=== PATIENT | male | born 1960 | race Caucasian/White ===

== ENCOUNTER → 2017-05-11 | Outpatient (REF) | payer OTHER ==
[~2017-05-11] MED LIST: /ATOR40TA; /QUIN10TA; ACET65TA; ACTO15TA; ANDROGEL; BABY81CH; EFFE150C; HYDR25TA6; PRIL20CA; ZEBE5TAB
[2017-05-11 12:28] LABS: ALBUMIN 4.1 GM/DL (3.2-5.2); ALBUMIN/GLOBULIN RATIO 1.11 (1.00-1.93); ALKALINE PHOSPHATASE 74 U/L (45-117); ALT/SGPT 50 U/L (12-78); AST/SGOT 31 U/L (15-37); BILIRUBIN,DIRECT 0.2 MG/DL (0.0-0.2); BILIRUBIN,TOTAL 0.7 MG/DL (0.2-1.0); CHOLESTEROL LEVEL 316 MG/DL (<200); TOTAL PROTEIN 7.8 GM/DL (6.4-8.2); TRIGLYCERIDES LEVEL 282 MG/DL (<150)
[2017-05-13 09:55] LABS: CARCINOEMBRYONIC ANTIGEN < 0.5 NG/ML (<2.5)
== END ==
LOC: M LABDRAW1 11:26
PROVIDERS: ATTEND Internal Medicine Cardiovascular Disease
DX: E78.5 Hyperlipidemia, unspecified (principal); E11.9 Type 2 diabetes mellitus without complications; K71.6 Toxic liver disease with hepatitis, not elsewhere classified

== ENCOUNTER 2018-01-09 08:24 | Emergency (ER) | payer OTHER ==
[2018-01-09] MEDS: KETOROLAC 60 MG/2 ML VIAL (J1885) IM (10:18)
== END 2018-01-09 10:50 | disposition home or self-care (01) ==
LOC: M ED 08:24
DX: S39.012A Strain of muscle, fascia and tendon of lower back, initial encounter (principal); X50.0XXA Overexertion from strenuous movement or load, initial encounter; Y92.89 Other specified places as the place of occurrence of the external cause; E11.9 Type 2 diabetes mellitus without complications; I10 Essential (primary) hypertension; E78.5 Hyperlipidemia, unspecified; M54.9 Dorsalgia, unspecified; G89.29 Other chronic pain; F32.9 Major depressive disorder, single episode, unspecified; Z79.82 Long term (current) use of aspirin; Z79.899 Other long term (current) drug therapy
CPT/HCPCS: J1885

== ENCOUNTER 2018-01-12 10:25 | Emergency (ER) | payer OTHER | END 2018-01-12 11:37 | disposition home or self-care (01) | LOC: M ED 10:25 | DX: S39.011D Strain of muscle, fascia and tendon of abdomen, subsequent encounter (principal); X58.XXXD Exposure to other specified factors, subsequent encounter; Y92.89 Other specified places as the place of occurrence of the external cause | CPT/HCPCS: 99282 ==

== ENCOUNTER → 2018-06-01 | Outpatient (CLI) | payer OTHER ==
[2018-06-01 08:35] LABS: HEMATOCRIT 46.7 % (42.0-52.0); HEMOGLOBIN 15.5 g/dl (13.5-17.5); MEAN CORPUSCULAR HEMOGLOBIN 30.8 pg (27.0-33.0); MEAN CORPUSCULAR HGB CONC 33.2 g/dl (32.0-36.5); MEAN CORPUSCULAR VOLUME 92.8 fl (80.0-96.0); PLATELET COUNT, AUTOMATED 276 10^3/uL (150-450); RED BLOOD COUNT 5.03 10^6/uL (4.30-6.10); RED CELL DISTRIBUTION WIDTH 12.1 % (11.5-14.5); WHITE BLOOD COUNT 8.3 10^3/uL (4.0-10.0)
[2018-06-01 08:43] LABS: APPEARANCE, URINE CLEAR (CLEAR); BACTERIA, URINE AUTO NEGATIVE (NEGATIVE); BILIRUBIN, URINE AUTO NEGATIVE (NEGATIVE); BLOOD, URINE BLOOD NEGATIVE (NEGATIVE); COLOR, URINE YELLOW (YELLOW); GLUCOSE, URINE (UA) AUTO NEGATIVE (NEGATIVE); KETONE, URINE AUTO NEGATIVE (NEGATIVE); LEUKOCYTE ESTERASE, URINE AUTO NEGATIVE (NEGATIVE); MUCUS, URINE SMALL (NEGATIVE); NITRITE, URINE AUTO NEGATIVE (NEGATIVE); PROTEIN, URINE AUTO NEGATIVE (NEGATIVE); RBC, URINE AUTO 2 /HPF (0-3); SPECIFIC GRAVITY URINE AUTO 1.025 (1.002-1.035); SQUAMOUS EPITHELIAL CELL UR AU 0 /HPF (0-6); WBC, URINE AUTO 3 /HPF (0-3)
[2018-06-01 08:50] LABS: ESTIMATED AVERAGE GLUCOSE 166 MG/DL (60-110); HEMOGLOBIN A1c 7.4 %
[2018-06-01 09:00] LABS: ALBUMIN 4.1 GM/DL (3.2-5.2); ALBUMIN/GLOBULIN RATIO 1.11 (1.00-1.93); ALKALINE PHOSPHATASE 79 U/L (45-117); ALT/SGPT 58 U/L (12-78); ANION GAP 6 MEQ/L (8-16); AST/SGOT 33 U/L (7-37); BILIRUBIN,TOTAL 0.6 MG/DL (0.2-1.0); BLOOD UREA NITROGEN 16 MG/DL (7-18); CARBON DIOXIDE LEVEL 30 MEQ/L (21-32); CHLORIDE LEVEL 107 MEQ/L (98-107); CHOLESTEROL LEVEL 160 MG/DL (<200); CHOLESTEROL RISK RATIO 4.705 (<5); CREATININE FOR GFR 1.15 MG/DL (0.70-1.30); FREE T4 0.95 NG/DL (0.76-1.46); GLOMERULAR FILTRATION RATE > 60.0 (>56); GLUCOSE, FASTING 165 MG/DL (70-100); HDL CHOLESTEROL 34 MG/DL (>40); NON-HDL-C 126 MG/DL; POTASSIUM SERUM 4.1 MEQ/L (3.5-5.1); RHEUMATOID FACTOR QUANT < 10.0 IU/ML (<15.0); SODIUM LEVEL 143 MEQ/L (136-145); TOTAL PROTEIN 7.8 GM/DL (6.4-8.2); TRIGLYCERIDES LEVEL 100 MG/DL (<150)
[2018-06-01 09:03] LABS: VITAMIN B12 LEVEL 369 PG/ML (247-911)
[2018-06-01 09:20] LABS: ERYTHROCYTE SEDIMENTATION RATE 4 mm/hr (0-20)
[2018-06-03 00:06] LABS: ANTINUCLEAR ANTIBODIES DIRECT Negative (Negative)
[2018-06-03 00:06] LABS: CYCLIC CITRULLINATED PEPTIDE 10 units (0-19)
== END ==
LOC: M LAB 07:44
DX: D64.9 Anemia, unspecified (principal)
CPT/HCPCS: 84443

== ENCOUNTER → 2020-04-29 | Outpatient (CLI) | payer OTHER ==
[~2020-04-29] MED LIST changes: -/ATOR40TA; -/QUIN10TA; +ACCU1TAB; +CIAL20TA PO; +CYCL-707 PO; +HYDR-3715 PO; +LIPI1TAB2
== END ==
LOC: M WUC 11:41
PROVIDERS: ATTEND Physician Assistant
DX: N40.0 Benign prostatic hyperplasia without lower urinary tract symptoms (principal)

== ENCOUNTER 2021-08-14 11:11 | Emergency (ER) | payer OTHER ==
[~2021-08-14] VITALS: Ht 172.7 cm; Wt 93.3 kg
--- OUTSIDE RECORDS SUMMARY | 2021-08-14 11:17 | CCD | Continuity of Care Document ---
Author Author Romaine WESTBROOK PA Organization Unknown Address [address] [place] [address] [place] [address] Phone [phone] Care Team Providers Care Manager Culture Name Role Phone Mirza. Cristela Segura AUTM [phone] Problems Description No Information Available Social History Type Date Description Comments Sex Unknown ETOH Use Occasionally consumes alcohol Tobacco Use Start: Unknown End: Unknown Patient is a former smoker Smoking Status Reviewed: 02/10/20 Patient is a former smoker Allergies, Adverse Reactions, Alerts Description No Known Drug Allergies Medications Active Medications SIG Qnty Indications Ordering Provide r Date Prednisone 20mg Tablets take one tablet twice a day x 5 days 10tabs R05 Omid Gao JR. 06/05/2021 Effexor XR 150mg Caps ER 24HR 1 po qd 30caps Unknown Aspirin Ec 325mg Tablets DR Unknown Quinapril HCL 10mg Tablets qd Unknown Lovaza 1gm Capsules Unknown Clonazepam 0.5mg Tablets Unknown Omeprazole Unknown Immunizations Description No Information Available Vital Signs Date Vital Result Comment 06/05/2021 1:14pm BP Systolic 119 mmHg BP Diastolic 80 mmHg Heart Rate 73 /min Respiratory Rate 16 /min O2 % BldC Oximetry 98 % Body Temperature 96.6 F Weight 195.00 lb Height 67 inches 5'7" BMI (Body Mass Index) 30.5 kg/m2 Pain Level 1 02/10/2020 10:41am BP Systolic 121 mmHg BP Diastolic 77 mmHg Heart Rate 81 /min Respiratory Rate 12 /min O2 % BldC Oximetry 97 % Body Temperature 98.0 F Weight 203.00 lb Height 67 inches 5'7" BMI (Body Mass Index) 31.8 kg/m2 Pain Level 2 Results Description No Information Available Procedures Date Code Description Status 06/05/2021 33913 Office/Outpatient Established Lo w MDM 20-29 Min Completed Medical Devices Description No Information Available Encounters Type Date Location Provider Dx Diagnosis Office Visit 06/05/2021 2:15p Main Office HÉCTOR Landaverde R05 Cough T59.4x1A Toxic effect of chlorine gas , accidental, init Assessments Date Code Description Provider 07/05/2021 Z20.828 Contact with and (thornton spected) exposure to other viral communicable diseases HÉCTOR Landaverde 06/05/2021 R05 Cough HÉCTOR King 06/05/2021 T59.4x1A Toxic effect of chlo rine gas, accidental (unintentional), initial encounter HÉCTOR Landaverde Plan of Treatment No Information Available Functional Status Description No Information Available Mental Status Description No Information Available Referrals Description No Information Available
--- OUTSIDE RECORDS SUMMARY | 2021-08-14 11:17 | CCD | Continuity of Care Document ---
Author Author Romaine WESTBROOK PA Organization Unknown Address [address] [place] [address] [place] [address] Phone [phone] Care Team Providers Care Cemetery Worker Name Role Phone Mirza. Cristela Segura AUTM [phone] Problems Description No Information Available Social History [...] Available Procedures Date Code Description Status 06/05/2021 57113 Office/Outpatient Established Helen w MDM 20-29 Min Completed Medical Devices Description No Information Available Encounters Type Date Location Provider Dx Diagnosis Office Visit 06/05/2021 2:15p Main Office HÉCTOR Landaverde R05 Cough T59.4x1A Toxic effect of chlorine gas , accidental, init Assessments Date Code Description Provider 06/05/2021 R05 Cough HÉCTOR King 06/05/2021 T59.4x1A Toxic effect of chlo rine gas, accidental (unintentional), initial encounter HÉCTOR Landaverde Plan of Treatment No Information Available Functional Status Description No Information Available Mental Status Description No Information Available Referrals Description No Information Available
--- OUTSIDE RECORDS SUMMARY | 2021-08-14 11:18 | CCD | Continuity of Care Document ---
Author Author Romaine WESTBROOK PA Organization Unknown Address [address] [place] [address] [place] [address] Phone [phone] Care Team Providers Care Glass Ribbon Machine Operator Name Role Phone Mirza. Cristela Segura AUTM [phone] Problems Description No Information Available Social History [...] Available Procedures Date Code Description Status 06/05/2021 02423 Office/Outpatient Established Lo w MDM 20-29 Min [...] initial encounter HÉCTOR Landaverde Plan of Treatment 06/05/2021 - HÉCTOR Landaverde* R05 Cough* New Medication:* Prednisone 20 mg - take one tablet twice a day x 5 days * T59.4x1A Toxic effect of chlorine gas, accidental (unintentional), initial encounter Functional Status Description No Information Available Mental Status Description No Information Available Referrals Description No Information Available
--- OUTSIDE RECORDS SUMMARY | 2021-08-14 11:18 | CCD | Continuity of Care Document ---
Author Author Romaine FORD P.C[facility] Organization Unknown Address [address] [place] [address] Phone [phone] Care Team Providers Care Box Turner Name Role Phone LON SEGURA M.D. P.C. AUTM [phone] Social History Type Date Description Comments Sex Unknown Medications Active Medications SIG Qnty Indications Ordering Provide r Date Vitamin D3 25mcg Tablet Take Two Tablets By Mouth Daily 180tabs [facility] 000 Levocetirizine Dihydrochloride 5mg Tablets Take Two Tablets By Mouth Every Day Unkno wn Easivent Misc as Directed With Inhaler Unknown Albuterol Sulfate HFA 108(90Base) mcg/Act Aerosol Inhale One To Two Puffs By Mouth Every 4 To 6 Hours as Needed For Shortness Of Breath Unknown Clonazepam 1mg Tablets Take Three Tablets By Mouth Twice A Day Maximum Daily Dose 6 Tablets Unknown Cortisporin-TC 3.3-3 -10-0.5mg/ml Suspension Instill 3 Drops Into Affected Ear S Two Times A Day Unknown Freestyle Lancets Misc Usr To Test Three Times A Day Unknown Freestyle [place] Lite w/Device Ki t Test Three Times A Day Unknown Freestyle Lite Test Strips Test Three Times A Day Unknown Methylprednisolone 4mg TBPK Take as Directed Per Package Instructions Unknown Metformin HCL 500mg Tablets Take One Tablet By Mouth Two Times Per Day With Morning And Evening Meals Unknown Cialis 20mg Tablets Take One Tablet By Mouth as Needed DO Not Take More Than Once Every 48 Hours Luther Unknown Losartan Potassium 100mg Tablets Take One Tablet By Mouth Once Daily 90tabs [facility] Vkmro-3-Yysr Ethyl Esters 1gm Caps ules Take Four Capsules By Mouth Once Daily 360caps Lon villafana [facility] Venlafaxine HCL ER 75mg Caps ER 24 HR Take Three Capsules By Mouth Every Day Unknown Omeprazole 20mg Capsules DR Take One Capsule By Mouth Every Day 90caps [facility] Rosuvastatin Calcium 10mg Tablets Take One Tablet By Mouth Daily 90tabs [facility] 0 Fenofibrate 48mg Tablets Take One Tablet By Mouth Every Day 90tasamuel [facility]ura [facility] 00 Aspirin Ec 325mg Tablets DR Take One Tablet By Mouth Every Day 90ta [facility] Amlodipine Besylate 5mg Tablets Take One Tablet By Mouth AT Bedtime 90tasamuel Segura M.D[facility] .[facility] Vital Signs Date Vital Result Comment 06/10/2021 11:17am Height 68 inches 5'8" Weight 199.38 lb BMI (Body Mass Index) 30.3 kg/m2 Body Temperature 97.7 F BP Systolic 122 mmHg BP Diastolic 70 mmHg Heart Rate 80 /min O2 % BldC Oximetry 98 % 11/03/2020 10:47am Height 68 inches 5'8" Weight 194.00 lb BMI (Body Mass Index) 29.5 kg/m2 Body Temperature 97.2 F BP Systolic 151 mmHg BP Diastolic 86 mmHg Heart Rate 77 /min O2 % BldC Oximetry 90 % Results Test Acquired Date Facility Test Result H/L Range Note CBC W/Automated Diff 06/10/[address] [id number] [phone] CBC W/Automated Diff (SEE NOTE) 1 WBC 12.4 10^3/uL High 4.2 - 11.0 RBC 4.86 10^6/uL 4.50 - 6.30 Hemoglobin 15.1 g/dL 14.0 - 16.0 Hematocrit 44.7 % 41.0 - 51.0 MCV 92.0 fL 80.0 - 94.0 MCH 31.1 pg 27.0 - 34.0 MCHC 33.8 g/dL 31.0 - 36.0 RDW 12.4 % 11.5 - 14.8 Platelets 305 10^3/uL 150 - 450 MPV 9.4 fL 7.4 - 10.4 Neut 50.1 % 37.0 - 80.0 Lymph 39.7 % 25.0 - 40.0 [place] 7.4 % 3.0 - 8.0 Eos 1.3 % 0.0 - 7.0 Baso 0.4 % 0.0 - 2.0 %Ig 1.1 % High 0.0 - 0.0 %NRBC 0.0 % 0.0 - 0.0 #Neut 6.19 10^3/uL 2.00 - 6.90 #Lymph 4.91 10^3/uL High 0.60 - 3.40 #[place] 0.91 10^3/uL High 0.00 - 0.90 #Eos 0.16 10^3/uL 0.00 - 0.70 #Baso 0.05 10^3/uL 0.00 - 0.20 #Ig 0.14 10^3/uL High 0.00 - 0.10 #NRBC 0.00 10^3/uL 0.00 - 0.00 Manual Diff NOT INDICATED RBC Morph NOT INDICATED Laboratory test finding 06/10/2021 [facility] [address] [place] [address] [phone] Hgba1c 6.1 % 4.4 - 6.1 2 Comprehensive Metabolic Panel 06/10/2021 [facility] [address] [place] [address] [phone] Comprehensive Metabo (SEE NOTE) 3 Sodium 145 mEq/L 134 - 153 Potassium 4.0 mEq/L 3.6 - 5.0 Chloride 106 mEq/L 98 - 107 Co2 31 mEq/L High 22 - 30 Glucose 120 mg/dL High 70 - 99 BUN 21 mg/dL 7 - 21 Creatinine 1.2 mg/dL 0.7 - 1.5 BUN/Creat 18 8 - 27 Total Protein 7.0 g/dL 6.3 - 8.2 Albumin 4.6 g/dL 3.9 - 5.0 Globulin 2.4 GM/DL 2.4 - 3.2 A/G Ratio 1.9 0.8 - 2.0 Calcium 10.2 mg/dL 8.4 - 10.2 Total Bili <0.7 mg/dL 0.2 - 1.3 Alkaline Phos 50 U/L 38 - 126 Sgot/Ast 16 U/L 5 - 40 SGPT/Alt 16 U/L 7 - 56 Anion Gap 8.0 mmol/L 8.0 - 16.0 Age 60 yrs Non-Aa GFR >60 mL/min Afr Amer GFR >60 mL/min 4 Cve Panel 06/10/[address] [address] [phone] Cve Panel (SEE NOTE) 5 Cholesterol 119 mg/dL Low 131 - 200 Triglycerides 149 mg/dL 35 - 160 HDL 49 mg/dL 29 - 86 LDL 58 mg/dL Low 65 - 175 Risk Factor 2.4 Low 3.4 - 4.9 LDL/HDL 1.18 1.00 - 3.55 6 Urinalysis 06/10/[address] [address] [phone] Urinalysis (SEE NOTE) 7 Source R Color yellow Normal: Yellow Clarity clear Normal: Clear Spec Ware 1.025 1.001 - 1.030 pH 6 5 - 9 Glucose NORM Normal: Negative Bilirubin NEG Normal: Negative Ketone NEG Normal: Negative Protein NEG Normal: Negative Nitrite NEG Normal: Negative Blood NEG Normal: Negative Leuk Est 25 Normal: Negative Urobilinogen 4 less than 1.0 mg/dL Microscopic See Below WBC 1 - 3 Normal: None Seen Epithelial FEW Normal: None Seen Bacteria Trace Normal: None Seen Laboratory test finding 06/10/[address] [address] [phone] PSA - Diagnostic 2.13 ng/mL 0.00 - 4.00 8 1 COMPLETE BLOOD COUNT 2 {A1] {HB] 3 COMPREHENSIVE METABOLIC PANE L 4 Male GFR Interprentation 20-49 yrs >60 mL/min Normal 50-59 yrs >56 mL/min Normal 60-69 yrs >49 mL/min Normal 70-79yrs >42 mL/min Normal 80 and above >35 mL/min Normal Female GFR Interpretation 20-39 yrs >60 mL/min Normal 40-49 yrs >58 mL/min Normal 50-59 yrs >51 mL/min Normal 60-69 yrs >45 mL/min Normal 70-79 yrs >39 mL/min Normal 80 and above >32 mL/min Normal 5 LIPID PANEL 6 CVE RISK CHOL/HDL LDL/HDL MEN: 1/2 AVERAGE 3.43 1.00 AVERAGE 4.97 3.55 2X AVERAGE 9.55 6.25 3X AVERAGE 23.99 7.99 WOMEN: 1/2 AVERAGE 3.27 1.47 AVERAGE 4.44 3.22 2X AVERAGE 7.05 5.03 3X AVERAGE 11.04 6.14 7 URINALYSIS 8 \\BLDo\\PSA INTERPRETATION\\BLD x\\ The PSA assay should not be used alone for a screening test or diagnosis for presence or absence of malignant disease. Predictions of disease recurrence should not be based solely on values obtained from serial patient serum values. The PSA result was determined by "[employer]", on the [employer] PILY 6000. Values obtained with different assay methods or kits cannot be used interchangeably. Procedures Date Code Description Status 06/10/2021 32961 Office/Outpatient Established Mo d MDM 30-39 Min Completed Encounters Type Date Location Provider Dx Diagnosis Office Visit 06/10/2021 11:30a [facility] I11.9 Hypertensive heart disease without heart failure E78.5 Hyperlipidemia, unspecified E66.9 Obesity, unspecified E11.9 Type 2 diabetes mellitus wit hout complications Assessments Date Code Description Provider 06/10/2021 I11.9 Hypertensive heart disease witho ut heart failure [facility] 06/10/2021 E78.5 Hyperlipidemia, unspecified [place] [facility] 06/10/2021 E66.9 Obesity, unspecified Lon maynard [facility] 06/10/2021 E11.9 Type 2 diabetes mellitus without complications [facility] Plan of Treatment Future Appointment(s):* 12/11/2021 10:30 am - [facility] at [facility]
--- OUTSIDE RECORDS SUMMARY | 2021-08-14 11:18 | CCD | Continuity of Care Document ---
Author Author Romaine WESTBROOK PA Organization Unknown Address [address] [place] [address] [place] [address] Phone [phone] Care Team Providers Care Licensed Journeyman Electrician Name Role Phone Mirza. Cristela Segura AUTM [phone] Problems Description No Information Available Social History [...] Available Procedures Date Code Description Status 06/05/2021 94473 Office/Outpatient Established Lo w MDM 20-29 Min [...]
--- OUTSIDE RECORDS SUMMARY | 2021-08-14 11:18 | CCD | Continuity of Care Document ---
Author Organization Unknown Address Unknown Phone Unavailable Care Team Providers Care Filleter Name Role Phone LON SEGURA M.D. P.C. AUTM [phone] Social History Type Date Description Comments Sex Unknown Medications Active Medications SIG Qnty Indications Ordering Provide r Date Vitamin D3 25mcg Tablet Take Two Tablets By Mouth Daily 180tabs Lon [facility] 000 Levocetirizine Dihydrochloride 5mg Tablets Take Two Tablets By Mouth Every Day Unkno wn Easivent [facility] as Directed With Inhaler Unknown Albuterol Sulfate [...] Two Times A Day Unknown Freestyle Lancets [facility] Usr To Test Three Times A Day Unknown Freestyle [place] Lite w/Device Ki t Test Three Times [...] Daily 90tabs Lon [facility] Vjzen-1-Lgyn Ethyl Esters 1gm Caps ules Take Four [...] Take One Tablet By Mouth Every Day 90tabs [facility] 00 Aspirin Ec 325mg Tablets DR Take One Tablet By Mouth Every Day 90tabs [facility] Amlodipine Besylate 5mg Tablets Take One Tablet By Mouth AT Bedtime 90tabs Lon [facility] Vital Signs Date [...] H/L Range Note CBC W/Automated Diff 06/10/[address] [address] [phone] CBC W/Automated Diff (SEE NOTE) 1 WBC [...] 80.0 Lymph 39.7 % 25.0 - 40.0 [place] 7.4 % 3.0 - 8.0 Eos 1.3 % 0.0 - 7.0 Baso 0.4 % 0.0 - 2.0 %Ig 1.1 % High 0.0 - 0.0 %NRBC 0.0 % 0.0 - 0.0 #Neut 6.19 10^3/uL 2.00 - 6.90 #Lymph 4.91 10^3/uL High 0.60 - 3.40 #[place] 0.91 10^3/uL High 0.00 - 0.90 #Eos 0.16 10^3/uL 0.00 - 0.70 #Baso 0.05 10^3/uL 0.00 - 0.20 #Ig 0.14 10^3/uL High 0.00 - 0.10 #NRBC 0.00 10^3/uL 0.00 - 0.00 Manual Diff NOT INDICATED RBC Morph NOT INDICATED Laboratory test finding 06/10/2021 [facility] [address] [place] [address] [phone] Hgba1c 6.1 % 4.4 - 6.1 2 Comprehensive Metabolic Panel 06/10/2021 [facility] [address] [place] [address] [phone] Comprehensive Metabo (SEE NOTE) 3 Sodium 145 [...] GFR >60 mL/min 4 Cve Panel 06/10/[address] [address] [phone] Cve Panel (SEE NOTE) 5 Cholesterol 119 mg/dL Low 131 - 200 Triglycerides 149 mg/dL 35 - 160 HDL 49 mg/dL 29 - 86 LDL 58 mg/dL Low 65 - 175 Risk Factor 2.4 Low 3.4 - 4.9 LDL/HDL 1.18 1.00 - 3.55 6 Urinalysis 06/10/[address] [address] [phone] Urinalysis (SEE NOTE) 7 Source R Color yellow Normal: Yellow Clarity clear Normal: Clear Spec [place] 1.025 1.001 - 1.030 pH 6 5 [...] Normal: None Seen Laboratory test finding 06/10/[address] [address] [phone] PSA - Diagnostic 2.13 ng/mL 0.00 - [...] result was determined by "[employer]CL[employer]", on the Sandra PILY 6000. Values obtained with different assay methods or kits cannot be used interchangeably. Plan of Treatment Future Appointment(s):* 12/11/2021 10:30 am - [facility] at [facility]
--- OUTSIDE RECORDS SUMMARY | 2021-08-14 11:18 | CCD ---
Author Author [facility] Organization [facility] Address Unknown Phone Unavailable Care Team Providers Care Running Instructor Name Role Phone PIETRO, George ANAYA Unavailable Unavailable LETTIERE, George ANAYA Unavailable Unavailable LETTIERE, George ANAYA Unavailable Unavailable LETTIERE, George ANAYA Unavailable Unavailable LETTIERE, George ANAYA Unavailable Unavailable LETTIERE, George ANAYA Unavailable Unavailable LETTIERE, George ANAYA Unavailable Unavailable LETTIERE, George ANAYA Unavailable Unavailable LETTIERE, George NAAYA Unavailable Unavailable LETTIERE, George ANAYA Unavailable Unavailable LETTIERE, George WOODS PA Unavailable Unavailable LETTIERE, George WOODS PA Unavailable Unavailable LETTIERE, George WOODS PA Unavailable Unavailable LETTIERE, George WOODS PA Unavailable Unavailable LETTIERE, George WOODS PA Unavailable Unavailable LETTIERE, George WOODS PA Unavailable Unavailable LETTIERE, George WOODS PA Unavailable Unavailable LETTIERE, George WOODS PA Unavailable Unavailable LETTIERE, George WOODS PA Unavailable Unavailable LETTIERE, George WOODS PA Unavailable Unavailable LETTIERE, George WOODS PA Unavailable Unavailable LETTIERE, George WOODS PA Unavailable Unavailable LETTIERE, A CHUCK PA Unavailable Unavailable LETTIERE, George WOODS PA Unavailable Unavailable LETTIERE, George WOODS PA Unavailable Unavailable LETTIERE, A CHUCK PA Unavailable Unavailable LETTIERE, A CHUCK PA Unavailable Unavailable LETTIERE, A CHUCK PA Unavailable Unavailable LETTIERE, A CHUCK PA Unavailable Unavailable LETTIERE, A CHUCK PA Unavailable Unavailable LETTIERE, A CHUCK PA Unavailable Unavailable Bartoszewski, Tonya Jannie MS, RPA-C Unavailable Unav ailable Bartoszewski, Tonya Jannie MS, RPA-C Unavailable Unav ailable Bartoszewski, Tonya Jannie MS, RPA-C Unavailable Unav ailable Bartoszewski, Tonya Jannie MS, RPA-C Unavailable Unav ailable Bartoszewski, Tonya Jannie MS, RPA-C Unavailable Unav ailable Bartoszewski, Tonya Jannie MS, RPA-C Unavailable Unav ailable Bartoszewski, Tonya Jannie MS, RPA-C Unavailable Unav ailable Bartoszewski, Tonya Jannie MS, RPA-C Unavailable Unav ailable Bartoszewski, Tonya Jannie MS, RPA-C Unavailable Unav ailable Bartoszewski, Tonya Jannie MS, RPA-C Unavailable Unav ailable Bartoszewski, Tonya Jannie MS, RPA-C Unavailable Unav ailable Bartoszewski, Tonya Jannie MS, RPA-C Unavailable Unav ailable Bartoszewski, Tonya Jannie MS, RPA-C Unavailable Unav ailable Bartoszewski, Tonya Jannie MS, RPA-C Unavailable Unav ailable Bartoszewski, Tonya Jannie MS, RPA-C Unavailable Unav ailable Bartoszewski, Tonya Jannie MS, RPA-C Unavailable Unav ailable Bartoszewski, Tonya Jannie MS, RPA-C Unavailable Unav ailable Bartoszewski, Tonya Jannie MS, RPA-C Unavailable Unav ailable Bartoszewski, Tonya Jannie MS, RPA-C Unavailable Unav ailable Bartoszewski, Tonya Jannie MS, RPA-C Unavailable Unav ailable Bartoszewski, Tonya Jannie MS, RPA-C Unavailable Unav ailable Bartoszewski, Tonya Jannie MS, RPA-C Unavailable Unav ailable Bartoszewski, Tonya Jannie MS, RPA-C Unavailable Unav ailable Bartoszewski, Tonya Jannie MS, RPA-C Unavailable Unav ailable Bartoszewski, Tonya Jannie MS, RPA-C Unavailable Unav ailable Bartoszewski, Tonya Jannie MS, RPA-C Unavailable Unav ailable Bartoszewski, Tonya Jannie MS, RPA-C Unavailable Unav ailable Bartoszewski, Tonya Jannie MS, RPA-C Unavailable Unav ailable Bartoszewski, Tonya Jannie MS, RPA-C Unavailable Unav ailable RUFUS, MAQBOOL SULEMA MD Unavailable Unavailable RUFUS, MAQBOOL SULEMA MD Unavailable Unavailable RUFUS, MAQBOOL SULEMA MD Unavailable Unavailable RUFUS, MAQBOOL SULEMA MD Unavailable Unavailable RUFUS, MAQBOOL SULEMA MD Unavailable Unavailable RUFUS, MAQBOOL SULEMA MD Unavailable Unavailable RUFUS, MAQBOOL SULEMA MD Unavailable Unavailable RUFUS, MAQBOOL SULEMA MD Unavailable Unavailable RUFUS, MAQBOOL SULEMA MD Unavailable Unavailable RUFUS, MAQBOOL SULEMA MD Unavailable Unavailable RUFUS, MAQBOOL SULEMA MD Unavailable Unavailable RUFUS, MAQBOOL SULEMA MD Unavailable Unavailable RUFUS, MAQBOOL SULEMA MD Unavailable Unavailable RUFUS, MAQBOOL SULEMA MD Unavailable Unavailable RUFUS, MAQBOOL SULEMA MD Unavailable Unavailable RUFUS, MAQBOOL SULEMA MD Unavailable Unavailable RUFUS, MAQBOOL SULEMA MD Unavailable Unavailable RUFUS, MAQBOOL SULEMA MD Unavailable Unavailable RUFUS, MAQBOOL SULEMA MD Unavailable Unavailable RUFUS, MAQBOOL SULEMA MD Unavailable Unavailable RUFUS, MAQBOOL SULEMA MD Unavailable Unavailable RUFUS, MAQBOOL SULEMA MD Unavailable Unavailable RUFUS, MAQBOOL SULEMA MD Unavailable Unavailable RUFUS, MAQBOOL SULEMA MD Unavailable Unavailable RUFUS, MAQBOOL SULEMA MD Unavailable Unavailable RUFUS, MAQBOOL SULEMA MD Unavailable Unavailable RUFUS, MAQBOOL SULEMA MD Unavailable Unavailable RUFUS, MAQBOOL SULEMA MD Unavailable Unavailable RUFUS, MAQBOOL SULEMA MD Unavailable Unavailable RUFUS, MAQBOOL SULEMA MD Unavailable Unavailable RUFUS, MAQBOOL SULEMA MD Unavailable Unavailable RUFUS, MAQBOOL SULEMA MD Unavailable Unavailable RUFUS, MAQBOOL SULEMA MD Unavailable Unavailable RUFUS, MAQBOOL SULEMA MD Unavailable Unavailable RUFUS, MAQBOOL SULEMA MD Unavailable Unavailable RUFUS, MAQBOOL SULEMA MD Unavailable Unavailable RUFUS, MAQBOOL SULEMA MD Unavailable Unavailable RUFUS, MAQBOOL SULEMA MD Unavailable Unavailable RUFUS, MAQBOOL SULEMA MD Unavailable Unavailable RUFUS, MAQBOOL SULEMA MD Unavailable Unavailable RUFUS, MAQBOOL SULEMA MD Unavailable Unavailable RUFUS, MAQBOOL SULEMA MD Unavailable Unavailable RUFUS, MAQBOOL SULEMA MD Unavailable Unavailable RUFUS, MAQBOOL SULEMA MD Unavailable Unavailable RUFUS, MAQBOOL SULEMA MD Unavailable Unavailable RUFUS, MAQBOOL SULEMA MD Unavailable Unavailable RUFUS, MAQBOOL SULEMA MD Unavailable Unavailable RUFUS, MAQBOOL SULEMA MD Unavailable Unavailable RUFUS, MAQBOOL SULEMA MD Unavailable Unavailable RUFUS, MAQBOOL SULEMA MD Unavailable Unavailable RUFUS, MAQBOOL SULEMA MD Unavailable Unavailable RUFUS, MAQBOOL SULEMA MD Unavailable Unavailable RUFUS, MAQBOOL SULEMA MD Unavailable Unavailable RUFUS, MAQBOOL SULEMA MD Unavailable Unavailable RUFUS, MAQBOOL SULEMA MD Unavailable Unavailable RUFUS, MAQBOOL SULEMA MD Unavailable Unavailable RUFUS, MAQBOOL SULEMA MD Unavailable Unavailable RUFUS, MAQBOOL SULEMA MD Unavailable Unavailable RUFUS, MAQBOOL SULEMA MD Unavailable Unavailable RUFUS, MAQBOOL SULEMA MD Unavailable Unavailable RUFUS, MAQBOOL SULEMA MD Unavailable Unavailable RUFUS, MAQBOOL SULEMA MD Unavailable Unavailable RUFUS, MAQBOOL SULEMA MD Unavailable Unavailable RUFUS, MAQBOOL SULEMA MD Unavailable Unavailable RUFUS, MAQBOOL SULEMA MD Unavailable Unavailable RUFUS, MAQBOOL SULEMA MD Unavailable Unavailable RUFUS, MAQBOOL SULEMA MD Unavailable Unavailable RUFUS, MAQBOOL SULEMA MD Unavailable Unavailable RUFUS, MAQBOOL SULEMA MD Unavailable Unavailable RUFUS, MAQBOOL SULEMA MD Unavailable Unavailable RUFUS, MAQBOOL SULEMA MD Unavailable Unavailable RUFUS, MAQBOOL SULEMA MD Unavailable Unavailable RUFUS, MAQBOOL SULEMA MD Unavailable Unavailable RUFUS, MAQBOOL SULEMA MD Unavailable Unavailable RUFUS, MAQBOOL SULEMA MD Unavailable Unavailable RUFUS, MAQBOOL SULEMA MD Unavailable Unavailable RUFUS, MAQBOOL SULEMA MD Unavailable Unavailable RUFUS, MAQBOOL SULEMA MD Unavailable Unavailable OBEN, T SINDY MD Unavailable Unavailable OBEN, T SINDY MD Unavailable Unavailable OBEN, T SINDY MD Unavailable Unavailable OBEN, T SINDY MD Unavailable Unavailable OBEN, T SINDY MD Unavailable Unavailable OBEN, T SINDY MD Unavailable Unavailable OBEN, T SINDY MD Unavailable Unavailable OBEN, T SINDY MD Unavailable Unavailable OBEN, T SINDY MD Unavailable Unavailable OBEN, T SINDY MD Unavailable Unavailable OBEN, T SINDY MD Unavailable Unavailable OBEN, T SINDY MD Unavailable Unavailable OBEN, T SINDY MD Unavailable Unavailable OBEN, T SINDY MD Unavailable Unavailable OBEN, T SINDY MD Unavailable Unavailable OBEN, T SINDY MD Unavailable Unavailable OBEN, T SINDY MD Unavailable Unavailable OBEN, T SINDY MD Unavailable Unavailable OBEN, T SINDY MD Unavailable Unavailable OBEN, T SINDY MD Unavailable Unavailable OBEN, T SINDY MD Unavailable Unavailable OBEN, T SINDY MD Unavailable Unavailable OBEN, T SINDY MD Unavailable Unavailable OBEN, T SINDY MD Unavailable Unavailable OBEN, T SINDY MD Unavailable Unavailable OBEN, T SINDY MD Unavailable Unavailable OBEN, T SINDY MD Unavailable Unavailable OBEN, T SINDY MD Unavailable Unavailable OBEN, T SINDY MD Unavailable Unavailable OBEN, T SINDY MD Unavailable Unavailable OBEN, T SINDY MD Unavailable Unavailable OBEN, T SINDY MD Unavailable Unavailable OBEN, T SINDY MD Unavailable Unavailable OBEN, T SINDY MD Unavailable Unavailable OBEN, T SINDY MD Unavailable Unavailable OBEN, T SINDY MD Unavailable Unavailable OBEN, T SINDY MD Unavailable Unavailable OBEN, T SINDY MD Unavailable Unavailable OBEN, T SINDY MD Unavailable Unavailable OBEN, T SINDY MD Unavailable Unavailable OBEN, T SINDY MD Unavailable Unavailable OBEN, T SINDY MD Unavailable Unavailable OBEN, T SINDY MD Unavailable Unavailable OBEN, T SINDY MD Unavailable Unavailable OBEN, T SINDY MD Unavailable Unavailable OBEN, T SINDY MD Unavailable Unavailable OBEN, T SINDY MD Unavailable Unavailable OBEN, T SINDY MD Unavailable Unavailable OBEN, T SINDY MD Unavailable Unavailable OBEN, T SINDY MD Unavailable Unavailable OBEN, T SINDY MD Unavailable Unavailable OBEN, T SINDY MD Unavailable Unavailable OBEN, T SINDY MD Unavailable Unavailable OBEN, T SINDY MD Unavailable Unavailable OBEN, T SINDY MD Unavailable Unavailable OBEN, T SINDY MD Unavailable Unavailable OBEN, T SNIDY MD Unavailable Unavailable RUFUS, MAQBOOL SULEMA MD Unavailable Unavailable RUFUS, MAQBOOL SULEMA MD Unavailable Unavailable RUFUS, MAQBOOL SULEMA MD Unavailable Unavailable RUFUS, MAQBOOL SULEMA MD Unavailable Unavailable RUFUS, MAQBOOL SULEMA MD Unavailable Unavailable RUFUS, MAQBOOL SULEMA MD Unavailable Unavailable RUFUS, MAQBOOL SULEMA MD Unavailable Unavailable RUFUS, MAQBOOL SULEMA MD Unavailable Unavailable RUFUS, MAQBOOL SULEMA MD Unavailable Unavailable RUFUS, MAQBOOL SULEMA MD Unavailable Unavailable RUFUS, MAQBOOL SULEMA MD Unavailable Unavailable RUFUS, MAQBOOL SULEMA MD Unavailable Unavailable RUFUS, MAQBOOL SULEMA MD Unavailable Unavailable RUFUS, MAQBOOL SULEMA MD Unavailable Unavailable RUFUS, MAQBOOL SULEMA MD Unavailable Unavailable RUFUS, MAQBOOL SULEMA MD Unavailable Unavailable RUFUS, MAQBOOL SULEMA MD Unavailable Unavailable RUFUS, MAQBOOL SULEMA MD Unavailable Unavailable RUFUS, MAQBOOL SULEMA MD Unavailable Unavailable RUFUS, MAQBOOL SULEMA MD Unavailable Unavailable RUFUS, MAQBOOL SULEMA MD Unavailable Unavailable RUFUS, MAQBOOL SULEMA MD Unavailable Unavailable RUFUS, MAQBOOL SULEMA MD Unavailable Unavailable RUFUS, MAQBOOL SULEMA MD Unavailable Unavailable RUFUS, MAQBOOL SULEMA MD Unavailable Unavailable RUFUS, MAQBOOL SULEMA MD Unavailable Unavailable RUFUS, MAQBOOL SULEMA MD Unavailable Unavailable RUFUS, MAQBOOL SULEMA MD Unavailable Unavailable RUFUS, MAQBOOL SULEMA MD Unavailable Unavailable RUFUS, MAQBOOL SULEMA MD Unavailable Unavailable RUFUS, MAQBOOL SULEMA MD Unavailable Unavailable RUFUS, MAQBOOL SULEMA MD Unavailable Unavailable RUFUS, MAQBOOL SULEMA MD Unavailable Unavailable RUFUS, MAQBOOL SULEMA MD Unavailable Unavailable RUFUS, MAQBOOL SULEMA MD Unavailable Unavailable RUFUS, MAQBOOL SULEMA MD Unavailable Unavailable RUFUS, MAQBOOL SULEMA MD Unavailable Unavailable RUFUS, MAQBOOL SULEMA MD Unavailable Unavailable RUFUS, MAQBOOL SULEMA MD Unavailable Unavailable RUFUS, MAQBOOL SULEMA MD Unavailable Unavailable RUFUS, MAQBOOL SULEMA MD Unavailable Unavailable RUFUS, MAQBOOL SULEMA MD Unavailable Unavailable RUFUS, MAQBOOL SULEMA MD Unavailable Unavailable RUFUS, MAQBOOL SULEMA MD Unavailable Unavailable RUFUS, MAQBOOL SULEMA MD Unavailable Unavailable RUFUS, MAQBOOL SULEMA MD Unavailable Unavailable RUFUS, MAQBOOL SULEMA MD Unavailable Unavailable RUFUS, MAQBOOL SULEMA MD Unavailable Unavailable RUFUS, MAQBOOL SULEMA MD Unavailable Unavailable RUFUS, MAQBOOL SULEMA MD Unavailable Unavailable RUFUS, MAQBOOL SULEMA MD Unavailable Unavailable RUFUS, MAQBOOL SULEMA MD Unavailable Unavailable RUFUS, MAQBOOL SULEMA MD Unavailable Unavailable RUFUS, MAQBOOL SULEMA MD Unavailable Unavailable RUFUS, MAQBOOL SULEMA MD Unavailable Unavailable RUFUS, MAQBOOL SULEMA MD Unavailable Unavailable RUFUS, MAQBOOL SULEMA MD Unavailable Unavailable RUFUS, MAQBOOL SULEMA MD Unavailable Unavailable RUFUS, MAQBOOL SULEMA MD Unavailable Unavailable RUFUS, MAQBOOL SULEMA MD Unavailable Unavailable RUFUS, MAQBOOL SULEMA MD Unavailable Unavailable RUFUS, MAQBOOL SULEMA MD Unavailable Unavailable RUFUS, MAQBOOL SULEMA MD Unavailable Unavailable RUFUS, MAQBOOL SULEMA MD Unavailable Unavailable RUFUS, MAQBOOL SULEMA MD Unavailable Unavailable RUFUS, MAQBOOL SULEMA MD Unavailable Unavailable RUFUS, MAQBOOL SULEMA MD Unavailable Unavailable RUFUS, MAQBOOL SULEMA MD Unavailable Unavailable RUFUS, MAQBOOL SULEMA MD Unavailable Unavailable RUFUS, MAQBOOL SULEMA MD Unavailable Unavailable RUFUS, MAQBOOL SULEMA MD Unavailable Unavailable RUFUS, MAQBOOL SULEMA MD Unavailable Unavailable RUFUS, MAQBOOL SULEMA MD Unavailable Unavailable RUFUS, MAQBOOL SULEMA MD Unavailable Unavailable RUFUS, MAQBOOL SULEMA MD Unavailable Unavailable RUFUS, MAQBOOL SULEMA MD Unavailable Unavailable RUFUS, MAQBOOL SULEMA MD Unavailable Unavailable RUFUS, MAQBOOL SULEMA MD Unavailable Unavailable Re-disclosure Warning The records that you are about to access may contain information from federally-assisted alcohol or drug abuse programs. If such information is present, then the following federally mandated warning applies: This information has been disclosed to you from records protected by federal confidentiality rules (42 CFR part 2). The federal rules prohibit you from making any further disclosure of this information unless further disclosure is expressly permitted by the written consent of the person to whom it pertains or as otherwise permitted by 42 CFR part 2. A general authorization for the release of medical or other information is NOT sufficient for this purpose. The Federal rules restrict any use of the information to criminally investigate or prosecute any alcohol or drug abuse patient.The records that you are about to access may contain highly sensitive health information, the redisclosure of which is protected by Article 27-F of the [facility] Public Health law. If you continue you may have access to information: Regarding HIV / AIDS; Provided by facilities licensed or operated by the [facility] Office of Mental Health; or Provided by the [facility] Office for People With Developmental Disabilities. If such information is present, then the following [facility] mandated warning applies: This information has been disclosed to you from confidential records which are protected by state law. State law prohibits you from making any further disclosure of this information without the specific written consent of the person to whom it pertains, or as otherwise permitted by law. Any unauthorized further disclosure in violation of state law may result in a fine or intermediate sentence or both. A general authorization for the release of medical or other information is NOT sufficient authorization for further disc losure. Allergies and Adverse Reactions Type Description Substance Reaction Status Data Source(s ) No Known Drug Allergies No Known Drug Allergies [facility] Family History Family Member Name Family Member Gender Family Member Status Date o f Status Description Data Source(s) Unknown Male Problem [facility] ([facility]) () Unknown Male Problem [facility] ([facility]) Unknown Unknown Problem [facility] ([facility], ) Unknown Unknown Problem [facility] ([facility]) Encounters Encounter Providers Location Date Indications Data Source(s ) Outpatient Attender: SULEMA SEGURA MDConsultant: SULEMA Cardoso MD 06/10/2021 11:45:00 AM EDT - 06/10/2021 12:45:[address] [facility] Outpatient Attender: Jannie Alexis MS, RPA-CConsultan t: SULEMA SEGURA MD 06/10/2021 11:43:00 AM EDT - 06/10/2021 12:43:[address] [facility] Outpatient Attender: SULEMA SEGURA MD Medical Building 06/10 11:30:00 AM EDT [facility] (Sulema Segura MD) Outpatient Attender: CHUCK martinez 06/05/2021 02:15:00 PM EDT [facility] ([facility]) Outpatient Attender: SINDY EVANS MDConsultant: SULEMA SEGURA MD 05/13/2021 09:04:00 AM EDT - 05/13/2021 09:04:[address] [facility] Outpatient Attender: SULEMA SEGURA MD Medical Building 11/03 09:00:00 AM EST [facility] (Sulema Segura MD) Outpatient Attender: SULEMA SEGURA MD Medical Building 07/31 02:45:00 PM EDT [facility] (Sulema Segura MD) Immunizations Vaccine Date Status Description Data Source(s) COVID-19 VACCINE Pfizer 01/16/2021 12:00:00 AM EDT completed [facility] Vaccine Series Complete: YESThis Data wa s Submitted to [facility] [address] COVID-19 VACCINE Pfizer 12/26/2020 12:00:00 AM EST completed [facility] Vaccine Series Complete: NOThis Data was Submitted to [facility] [address] Medications Medication Brand Name Start Date Product Form Dose Route Admi nistrative Instructions Pharmacy Instructions Status Indications Reaction Description Data Source(s) 20 mg 06/05/2021 12:00:00 AM EDT tablet 10 TAKE ONE TABLET BY MOUTH TWICE A DAY FOR 5 DAYS TAKE ONE TABLET BY MOUTH TWICE A DAY FOR 5 DAYS SOLD: 2020 [facility] Prednisone 20 MG Oral Tablet Prednisone 06/05/2021 12:00:00 AM EDT active [facility] ([facility]) 2 % 07/31/2020 12:00:00 AM EDT ointment 44 APPLY A SMALL AMOUNT TO AFFECTED AREA(S) TOPICALLY THREE TIMES A DAY APPLY A SMALL AMOUNT TO AFFECTED AREA(S) TOPICALLY THREE TIMES A DAY SOLD: 08/01/2020 [facility] 875-125 mg 07/31/2020 12:00:00 AM EDT tablet 20 TAKE ONE TABLET BY MOUTH EVERY 12 HOURS TAKE ONE TABLET BY MOUTH EVERY 12 HOURS SOLD: 08/01/2020 [facility] 75 mg 05/28/2020 12:00:00 AM EDT capsule,extended releas e 24hr 15 TAKE THREE CAPSULES BY MOUTH EVERY DAY TAKE THREE CAPSULES BY MOUTH EVERY DAY SOLD: 08/30/2020 [facility] Insurance Providers Payer name Policy type / Coverage type Policy ID Covered libertarian ID Covered libertarian's relationship to pineda Policy Pineda Plan Information [employer] [id number] [facility] [id number] [employer] Self () Workers Compensation [id number] Self J [id number] [employer] Self () Workers Compensation [id number] Self J [id number] [employer] Self () Workers Compensation [id number] Self J [id number] [facility] Self () Workers Compensation [id number] Self J [id number] [facility] Self () Workers Compensation [id number] Self J [id number] [facility] Self () Workers Compensation [id number] Self J [id number] [facility] Self () Workers Compensation [id number] Self J [id number] [employer] () Workers Compensation [id number] Self W [id number] [employer] (WC) Workers Compensation [id number] Self W [id number] [employer] Workers Compensation [id number] Self [id number] [employer] () Workers Compensation [id number] Self W [id number] [employer] (WC) Workers Compensation [id number] Self W [id number] [employer] (WC) Workers Compensation [id number] Self W [id number] [employer] (WC) Workers Compensation [id number] Self W [id number] [employer] (WC) Workers Compensation [id number] Self W [id number] [employer] (WC) Workers Compensation [id number] Self W [id number] [employer] (WC) Workers Compensation [id number] Self W [id number] [employer] (HMO) [id number] Se lf [facility] SELF INSURED CLM#[id number] SP CLM#[id number] [employer] [id number] Self [employer] [id number] 18 [id number] [facility] SELF INS P [id number] S [id number] [employer] PPO P [id number] S [id number] [facility] SELF INSURED [id number] SP [id number] OTHER WORKERS COMPENSATION [id number] SP [id number] UMR [facility] [id number] SP [id number] [employer] -O/P [id number] 18 [id number] [employer] [id number] 18 [id number] [employer] [id number] Self [id number] [employer] (pr) Medigap Part B [id number] 6226.0 Self [id number] [employer] (pr) Commercial [id number] Self [id number] [employer] [id number] S elf [id number] [employer] (pr) Medigap Part B [id number] 6226.0 Self [id number] [employer] (pr) Medigap Part B [id number] 6226.0 Self [id number] [employer] [id number] S elf [id number] [employer] (pr) Medigap Part B [id number] 6226.0 Self [id number] [employer] O [id number] S [id number] [employer] (pr) Medigap Part B [id number] 6226.0 Self [id number] [employer] (pr) Medigap Part B [id number] 6226.0 Self [id number] [employer] (pr) Medigap Part B [id number] 6226.0 Self [id number] [facility] SELF INSURED [id number] [employer]-O/P [id number] 18 [id number] [employer] [id number] Self [id number] [employer] [id number] 18 [id number] Problems, Conditions, and Diagnoses Code Display Name Description Problem Type Effective Dates Data Source(s) N390 Urinary tract infection, site not specif ied Urinary tract infection, site not specified Diagnosis 06/10/2021 11:45:[address] [facility] D649 Anemia, unspecified Anemia, unspecified Diagnosis 0 06/10/2021 11:45:[address] [facility] E785 Hyperlipidemia, unspecified Hyperlipidemia, unspecifie d Diagnosis 06/10/2021 11:45:[address] [facility] E119 Type 2 diabetes mellitus without complic ations Type 2 diabetes mellitus without complications Diagnosis 06/10/2021 11:45:00 AM EDT [facility] Z125 Encounter for screening for malignant ne oplasm of prostate Encounter for screening for malignant neoplasm of prostate Diagnosis 11:43:[address] [facility] Surgeries/Procedures Procedure Description Date Indications Data Source(s) OFFICE OUTPATIENT VISIT 25 MINUTES 06/10/2021 12:00:00 AM EDT [facility] (Sulema Segura MD) OFFICE OUTPATIENT VISIT 15 MINUTES 06/05/2021 12:00:00 AM EDT [facility] ([facility]) Results ID Date Data Source [id number] 07/05/2021 12:00:00 AM EDT [facility] Name Value Range Interpretation Code Description Data Génesis rce(s) Supporting Document(s) SARS-CoV2 Rapid Antigen Negative [facility] This lab was reported by [facility]. ID Date Data Source [id number] 06/10/2021 11:52:00 AM EDT [facility] (Sulema Segura MD) Name Value Range Interpretation Code Description Data Génesis rce(s) Supporting Document(s) Laboratory test finding (navigational concept) Laboratory test result [facility] (Sulema Segura MD) URINALYSIS Laboratory test finding (navigational concept) Laboratory test result [facility] (Sulema Segura MD) Laboratory test finding (navigational concept) Laboratory test result [facility] (Sulema Segura MD) Laboratory test finding (navigational concept) Laboratory test result [facility] (Sulema Segura MD) Laboratory test finding (navigational concept) 1.025 1.001-1.030 [facility] (Sulema Segura MD) Laboratory test finding (navigational concept) 6 5-9 [facility] (Sulema Segura MD) Laboratory test finding (navigational concept) Laboratory test result [facility] (Sulema Segura MD) Laboratory test finding (navigational concept) Laboratory test result [facility] (Sulema Segura MD) Laboratory test finding (navigational concept) Laboratory test result [facility] (Sulema Segura MD) Laboratory test finding (navigational concept) Laboratory test result [facility] (Sulema Segura MD) Laboratory test finding (navigational concept) Laboratory test result [facility] (Sulema Segura MD) Laboratory test finding (navigational concept) Laboratory test result [facility] (Sulema Segura MD) Laboratory test finding (navigational concept) 25 [facility] (Sulema Segura MD) Laboratory test finding (navigational concept) 4 [facility] (Sulema Segura MD) Laboratory test finding (navigational concept) Laboratory test result [facility] (Sulema Segura MD) Laboratory test finding (navigational concept) Laboratory test result [facility] (Sulema Segura MD) Laboratory test finding (navigational concept) Laboratory test result [facility] (Sulema Segura MD) Laboratory test finding (navigational concept) Laboratory test result [facility] (Sulema Segura MD) ID Date Data Source [id number] 06/10/2021 11:52:00 AM EDT [facility] (Sulema Segura MD) Name Value Range Interpretation Code Description Data Génesis rce(s) Supporting Document(s) Laboratory test finding (navigational concept) Laboratory test result [facility] (Sulema Segura MD) LIPID PANEL Laboratory test finding (navigational concept) 119 mg/dL 1 31-200 Below low normal [facility] (Sulema Segura MD) Laboratory test finding (navigational concept) 149 mg/dL 35-160 [facility] (Sulema Segura MD) Laboratory test finding (navigational concept) 58 mg/dL 65-175 Below low normal [facility] (Sulema Segura MD) Laboratory test finding (navigational concept) 49 mg/dL 29-86 [facility] (Sulema Segura MD) Laboratory test finding (navigational concept) 2.4 3.4-4.9 Below low normal [facility] (Sulema Segura MD) Laboratory test finding (navigational concept) 1.18 1.00-3.55 [facility] (Sulema Segura MD) CVE RISK CHOL/HDL LDL/HDL MEN: 1/2 AVERAGE 3.43 1.00 AVERAGE 4.97 3.55 2X AVERAGE 9.55 6.25 3X AVERAGE 23.99 7.99 WOMEN: 1/2 AVERAGE 3.27 1.47 AVERAGE 4.44 3.22 2X AVERAGE 7.05 5.03 3X AVERAGE 11.04 6.14 ID Date Data Source [id number] 06/10/2021 11:52:00 AM EDT [facility] (Sulema Segura MD) Name Value Range Interpretation Code Description Data Génesis rce(s) Supporting Document(s) Laboratory test finding (navigational concept) Laboratory test result [facility] (Sulema Segura MD) COMPREHENSIVE METABOLIC PANEL Laboratory test finding (navigational concept) 145 meq/L 134-153 [facility] (Sulema Segura MD) Laboratory test finding (navigational concept) 4.0 meq/L 3.6-5.0 [facility] (Sulema Segura MD) Laboratory test finding (navigational concept) 31 meq/L 22-30 Above high normal [facility] (Sulema Segura MD) Laboratory test finding (navigational concept) 106 meq/L 98-107 [facility] (Sulema Segura MD) Laboratory test finding (navigational concept) 21 mg/dL 7-21 [facility] (Sulema Segura MD) Laboratory test finding (navigational concept) 120 mg/dL 7 0-99 Above high normal [facility] (Sulema Segura MD) Laboratory test finding (navigational concept) 18 8-27 [facility] (Sulema Segura MD) Laboratory test finding (navigational concept) 1.2 mg/dL 0.7-1.5 [facility] (Sulema Segura MD) Laboratory test finding (navigational concept) 4.6 g/dL 3.9-5.0 [facility] (Sulema Segura MD) Laboratory test finding (navigational concept) 7.0 g/dL 6.3-8.2 [facility] (Sulema Segura MD) Laboratory test finding (navigational concept) 1.9 0.8-2.0 [facility] (Sulema Segura MD) Laboratory test finding (navigational concept) 2.4 GM/DL 2.4-3.2 [facility] (Sulema Segura MD) Laboratory test finding (navigational concept) 10.2 mg/dL 8.4-10.2 [facility] (Sulema Segura MD) Laboratory test finding (navigational concept) 50 U/L 38-126 [facility] (Sulema Segura MD) Laboratory test finding (navigational concept) Laboratory test resu lt 0.2-1.3 [facility] (Sulema Segura MD) Laboratory test finding (navigational concept) 16 U/L 5-40 [facility] (Sulema Segura MD) Laboratory test finding (navigational concept) 8.0 mmol/L 8.0-16.0 [facility] (Sulema Segura MD) Laboratory test finding (navigational concept) 16 U/L 7-56 [facility] (Sulema Segura MD) Laboratory test finding (navigational concept) 60 yrs [facility] (Sulema Segura MD) Laboratory test finding (navigational concept) Laboratory test result [facility] (Sulema Segura MD) Laboratory test finding (navigational concept) Laboratory test result [facility] (Sulema Segura MD) Male GFR Interprentation 20-49 yrs >60 mL/min Normal 50-59 yrs >56 mL/min Normal 60-69 yrs >49 mL/min Normal 70-79yrs >42 mL/min Normal 80 and above >35 mL/min Normal Female GFR Interpretation 20-39 yrs >60 mL/min Normal 40-49 yrs >58 mL/min Normal 50-59 yrs >51 mL/min Normal 60-69 yrs >45 mL/min Normal 70-79 yrs >39 mL/min Normal 80 and above >32 mL/min Normal ID Date Data Source [id number] 06/10/2021 11:52:00 AM EDT [facility] (Sulema Segura MD) Name Value Range Interpretation Code Description Data Génesis rce(s) Supporting Document(s) Hemoglobin A1c/Hemoglobin.total in Blood 6.1 % 4.4-6.1 [facility] (Sulema Segura MD) {A1] {HB] ID Date Data Source [id number] 06/10/2021 11:52:00 AM EDT [facility] (Sulema Segura MD) Name Value Range Interpretation Code Description Data Génesis rce(s) Supporting Document(s) Laboratory test finding (navigational concept) Laboratory test result [facility] (Sulema Segura MD) COMPLETE BLOOD COUNT Laboratory test finding (navigational concept) 12.4 10^3/uL 4 .2-11.0 Above high normal [facility] (Sulema Segura MD) Laboratory test finding (navigational concept) 4.86 10^6/uL 4.50-6.30 [facility] (Sulema Segura MD) Laboratory test finding (navigational concept) 15.1 g/dL 14.0-16.0 [facility] (Sulema Segura MD) Laboratory test finding (navigational concept) 31.1 pg 27.0-34.0 [facility] (Sulema Segura MD) Laboratory test finding (navigational concept) 92.0 fL 80.0-94.0 [facility] (Sulema Segura MD) Laboratory test finding (navigational concept) 44.7 % 41.0-51.0 [facility] (Sulema Segura MD) Laboratory test finding (navigational concept) 12.4 % 11.5-14.8 [facility] (Sulema Segura MD) Laboratory test finding (navigational concept) 33.8 g/dL 31.0-36.0 [facility] (Sulema Segura MD) Laboratory test finding (navigational concept) 305 10^3/uL 150-450 [facility] (Sulema Segura MD) Laboratory test finding (navigational concept) 9.4 fL 7.4-10.4 [facility] (Sulema Segura MD) Laboratory test finding (navigational concept) 50.1 % 37.0-80.0 [facility] (Sulema Segura MD) Laboratory test finding (navigational concept) 7.4 % 3.0-8.0 [facility] (Sulema Segura MD) Laboratory test finding (navigational concept) 39.7 % 25.0-40.0 [facility] (Sulema Segura MD) Laboratory test finding (navigational concept) 1.3 % 0.0-7.0 [facility] (Sulema Segura MD) Laboratory test finding (navigational concept) 0.4 % 0.0-2.0 [facility] (Sulema Segura MD) Laboratory test finding (navigational concept) 1.1 % 0.0-0.0 Above high normal [facility] (Sulema Segura MD) Laboratory test finding (navigational concept) 6.19 10^3/uL 2.00-6.90 [facility] (Sulema Segura MD) Laboratory test finding (navigational concept) 0.0 % 0.0-0.0 [facility] (Sulema Segura MD) Laboratory test finding (navigational concept) 0.91 10^3/uL 0 .00-0.90 Above high normal [facility] (Sulema Segura MD) Laboratory test finding (navigational concept) 4.91 10^3/uL 0 .60-3.40 Above high normal [facility] (Sulema Segura MD) Laboratory test finding (navigational concept) 0.05 10^3/uL 0.00-0.20 [facility] (Sulema Segura MD) Laboratory test finding (navigational concept) 0.14 10^3/uL 0 .00-0.10 Above high normal [facility] (Sulema Segura MD) Laboratory test finding (navigational concept) 0.16 10^3/uL 0.00-0.70 [facility] (Sulema Segura MD) Laboratory test finding (navigational concept) 0.00 10^3/uL 0.00-0.00 [facility] (Sulema Segura MD) Laboratory test finding (navigational concept) Laboratory test result [facility] (Sulema Segura MD) Laboratory test finding (navigational concept) Laboratory test result [facility] (Sulema Segura MD) ID Date Data Source [id number] 06/10/2021 01:13:00 PM EDT [facility] Name Value Range Interpretation Code Description Data Génesis rce(s) Supporting Document(s) UR[facility]ALYSIS [facility] URINALYS[facility] SOURCE R [facility] COLOR yellow NORMAL: Yellow [facility] CLARITY clear NORMAL: Clear [facility] Specific gravity of Urine by Test strip 1.025 1.001 - 1.030 [facility] pH 6 5 - 9 [facility] al Glucose [Mass/volume] in Urine by Test strip NORM NORMAL: Negat [facility] Bilirubin.total [Presence] in Urine by Test strip NEG NORMAL: Negative [facility] Ketones [Presence] in Urine by Test strip NEG NORMAL: Negative [facility] Protein [Mass/volume] in Urine by Test strip NEG NORMAL: Negat [facility] Nitrite [Presence] in Urine by Test strip NEG NORMAL: Negative [facility] BLOOD NEG NORMAL: Negative [facility] LEUK EST 25 NORMAL: Negative [facility] Urobilinogen [Mass/volume] in Urine by Test strip 4 less vicente n 1.0 mg/dL [facility] MICROSCOPIC See Below [facility] ital WBC 1 - 3 NORMAL: NONE SEEN [facility] EPITHELIAL FEW NORMAL: NONE SEEN [facility] Bacteria [Presence] in Urine sediment by Light microscopy Tr michelle NORMAL: NONE SEEN [facility] ID Date Data Source [id number] 06/10/2021 12:57:[address] [facility] Name Value Range Interpretation Code Description Data Génesis rce(s) Supporting Document(s) CVE PANEL [facility] al LIPID PANEL Cholesterol [Mass/volume] in Serum or Plasma 119 MG/DL 131 - [address] [facility] Deprecated Triglyceride [Mass/volume] in Serum or Plasma 149 MG/DL 3 5 - 160 [facility] HDL 49 MG/DL 29 - 86 [facility] al Cholesterol in LDL [Mass/volume] in Serum or Plasma by Direc t assay 58 mg/dL 65 - [address] [facility] Cholesterol.total/Cholesterol in HDL [Mass Ratio] in Serum o r Plasma 2.4 3.4 - 4.[address] [facility] LDL/HDL 1.18 1.00 - 3.55 [facility] ital CVE RISK CHOL/HDL LDL/HDLMEN: 1/2 AVERAGE 3.43 1.00 AVERAGE 4.97 3.55 2X AVERAGE 9.55 6.25 3X AVERAGE 23.99 7.99WOMEN: 1/2 AVERAGE 3.27 1.47 AVERAGE 4.44 3.22 2X AVERAGE 7.05 5.03 3X AVERAGE 11.04 6.14 ID Date Data Source [id number] 06/10/2021 12:57:[address] [facility] Name Value Range Interpretation Code Description Data Génesis rce(s) Supporting Document(s) COMPREHENSIVE METABOLIC PANEL [facility] COMPREHENSIVE METABOLIC PANEL Sodium [Moles/volume] in Serum or Plasma 145 mEq/L 134 - 153 [facility] Potassium [Moles/volume] in Serum or Plasma 4.0 mEq/L 3.6 - 5.0 [facility] Chloride [Moles/volume] in Serum or Plasma 106 mEq/L 98 - 107 [facility] Carbon dioxide, total [Moles/volume] in Serum or Plasma 31 MEQ/L 22 - [address] [facility] Glucose [Mass/volume] in Serum or Plasma 120 MG/DL 70 - [address] [facility] BUN 21 MG/DL 7 - 21 [facility] al Creatinine [Mass/volume] in Serum or Plasma 1.2 MG/DL 0.7 - 1.5 [facility] BUN/CREAT 18 8 - 27 [facility] al Protein [Mass/volume] in Serum or Plasma 7.0 G/DL 6.3 - 8.2 [facility] Albumin [Mass/volume] in Serum or Plasma 4.6 G/DL 3.9 - 5.0 [facility] Globulin [Mass/volume] in Serum by calculation 2.4 GM/DL 2.4 - 3.2 [facility] A/G RATIO 1.9 0.8 - 2.0 Health system Calcium [Mass/volume] in Serum or Plasma 10.2 MG/DL 8.4 - 10.2 [facility] Bilirubin.total [Mass/volume] in Serum or Plasma <0.7 MG/DL 0.2 - 1.3 [facility] Alkaline phosphatase [Enzymatic activity/volume] in Serum or Plasma 50 U/L 38 - 126 [facility] Aspartate aminotransferase [Enzymatic activity/volume] in Serum or Plasma 16 U/L 5 - 40 [facility] Alanine aminotransferase [Enzymatic activity/volume] in Seru m or Plasma 16 U/L 7 - 56 [facility] Anion gap 3 in Serum or Plasma 8.0 mmol/L 8.0 - 16.0 [facility] AGE 60 yrs [facility] NON-AA GFR >60 mL/min [facility] ital AFR AMER GFR >60 mL/min [facility] Male GFR In terprentation 20-49 yrs >60 mL/min Normal 50-59 yrs >56 mL/min Normal 60-69 yrs >49 mL/min Normal 70-79yrs >42 mL/min Normal 80 and above >35 mL/min Normal Female GFR Interpretation 20-39 yrs >60 mL/min Normal 40-49 yrs >58 mL/min Normal 50-59 yrs >51 mL/min Normal 60-69 yrs >45 mL/min Normal 70-79 yrs >39 mL/min Normal 80 and above >32 mL/min Normal ID Date Data Source [id number] 06/10/2021 12:43:[address] [facility] Name Value Range Interpretation Code Description Data Génesis rce(s) Supporting Document(s) Hemoglobin A1c/Hemoglobin.total in Blood 6.1 % 4.4 - 6.1 [facility] {A1]{HB] ID Date Data Source [id number] 06/10/2021 12:04:[address] [facility] Name Value Range Interpretation Code Description Data Génesis rce(s) Supporting Document(s) CBC W/AUTOMATED DIFF [facility] COMPLETE BLOOD COUNT Leukocytes [#/volume] in Blood by Automated count 12.4 10^3/uL 4.2 - 11.[address] [facility] Erythrocytes [#/volume] in Blood by Automated count 4.86 10^6/uL 4. 50 - 6.30 [facility] Hemoglobin [Mass/volume] in Blood 15.1 g/dL 14.0 - 16.0 [facility] Hematocrit [Volume Fraction] of Blood by Automated count 44.7 % 4 1.0 - 51.0 [facility] Erythrocyte mean corpuscular volume [Entitic volume] by Auto mated count 92.0 fL 80.0 - 94.0 [facility] Erythrocyte mean corpuscular hemoglobin [Entitic mass] by Automated count 31.1 pg 27.0 - 34.0 [facility] Erythrocyte mean corpuscular hemoglobin concentration [Mass/volume] by Automated count 33.8 g/dL 31.0 - 36.0 [facility] Erythrocyte distribution width [Ratio] by Automated count 12.4 % 11.5 - 14.8 [facility] Platelets [#/volume] in Blood by Automated count 305 10^3/uL 150 - [address] [facility] Platelet mean volume [Entitic volume] in Blood by Automated count 9.4 fL 7.4 - 10.4 [facility] Neutrophils/100 leukocytes in Blood by Automated count 50.1 % 37. 0 - 80.0 [facility] Lymphocytes/100 leukocytes in Blood by Manual count 39.7 % 25.0 - 40.0 [facility] Monocytes/100 leukocytes in Blood by Automated count 7.4 % 3.0 - 8.0 [facility] Eosinophils/100 leukocytes in Blood by Automated count 1.3 % 0.0 - 7.0 [facility] Basophils/100 leukocytes in Blood by Automated count 0.4 % 0.0 - 2.0 [facility] %IG 1.1 % 0.0 - 0.0 H [facility] %NRBC 0.0 % 0.0 - 0.0 [facility] al Neutrophils [#/volume] in Blood by Automated count 6.19 10^3/uL 2.00 - 6.90 [facility] Lymphocytes [#/volume] in Blood by Automated count 4.91 10^3/uL 0.60 - 3.[address] [facility] Monocytes [#/volume] in Blood by Automated count 0.91 10^3/uL 0.00 - 0.[address] [facility] Eosinophils [#/volume] in Blood by Automated count 0.16 10^3/uL 0.00 - 0.70 [facility] Basophils [#/volume] in Blood by Automated count 0.05 10^3/uL 0.00 - 0.20 [facility] #IG 0.14 10^3/uL 0.00 - 0.10 H [facility] #NRBC 0.00 10^3/uL 0.00 - 0.00 [facility] MANUAL DIFF NOT INDICATED [facility] Hospital RBC MORPH NOT INDICATED [facility] ID Date Data Source [id number] 06/10/2021 11:51:00 AM EDT [facility] (Sulema Segura MD) Name Value Range Interpretation Code Description Data [facility] Supporting Document(s) Prostate specific Ag [Mass/volume] in Serum or Plasma 2.13 ng/mL 0.00 -4.00 [facility] (Sulema Segura MD) \\BLDo\\PSA INTERPRETATION\\BLDx\\ The PSA assay should not be used alone for a screening test or diagnosis for presence or absence of malignant disease. Predictions of disease recurrence should not be based solely on values obtained from serial patient serum values. The PSA result was determined by "[employer]", on the [employer] P[employer] [id number]. Values obtained with different assay methods or kits cannot be used interchangeably. ID Date Data Source [id number] 06/10/2021 12:58:[address] [facility] Name Value Range Interpretation Code Description Data Génesis e(s) Supporting Document(s) Prostate specific Ag [Mass/volume] in Serum or Plasma 2.13 ng/mL 0.00 - 4.00 [facility] \\BLDo\\PSA INTERPRETA TION\\BLDx\\ The PSA assay should not be used alone for a screening test or diagnosis for presence or absence of malignant disease. Predictions of disease recurrence should not be based solely on values obtained from serial patient serum values. The PSA result was determined by "[employer]", on the [id number]. Values obtained with different assay methods or kits cannot be used interchangeably. ID Date Data Source [id number] 05/13/2021 11:08:00 AM EDT [facility] ([facility]) Name Value Range Interpretation Code Description Data [facility](s) Supporting Document(s) Color of Urine Laboratory test result [facility] ([facility]) Appearance of Urine Laboratory test result [facility] ([facility]) Spec [place] 1.030 1.001-1.030 [facility] ([facility]) pH of Urine by Test strip 5 5-9 [facility] ([facility]) Leukocytes Laboratory test result [facility] ([facility]) Nitrate [Presence] in Urine Laboratory test result [facility] ([facility]) Protein [Presence] in Urine by Test strip Laboratory test [facility]) Ketones [Presence] in Urine by Test strip Laboratory test result [facility] ([facility]) Inhouse Glucose Laboratory test result Above high normal [facility] ([facility]) Bilirubin.total [Presence] in Urine by Test strip Laboratory test res ult [facility]) Urobilinogen Laboratory test result [facility]) Blood type and Indirect antibody screen panel - Blood Laboratory test result [facility] ([facility]) Procedure Social History No Information Vital Signs ID Date Data Source UNK Name Value Range Interpretation Code Description Data Source(s) Body height 68 [in_i] 68 [in_i] [facility] (Sulema Segura MD) 5'8" Body weight 199.38 [lb_av] 199.38 [lb_av] [facility] (Sulema Segura MD) Body mass index (BMI) [Ratio] 30.3 kg/m2 30.3 k g/m2 [facility] (Sulema Segura MD) Body temperature 97.7 [degF] 97.7 [degF] [facility] (Sulema Segura MD) Systolic blood pressure 122 mm[Hg] 122 mm[Hg] [facility] (Sulema Segura MD) Diastolic blood pressure 70 mm[Hg] 70 mm[Hg] [facility] (Sulema Segura MD) Heart rate 80 /min 80 /min [facility] (Sulema Segura MD) Oxygen saturation in Arterial blood by Pulse oximetry 98 % 98 % [facility] (Sulema Segura MD) Systolic blood pressure 119 mm[Hg] 119 mm[Hg] [facility] ([facility], [facility]) Diastolic blood pressure 80 mm[Hg] 80 mm[Hg] [facility] ([facility], [facility]) Heart rate 73 /min 73 /min [facility] ([facility], [facility]) Respiratory rate 16 /min 16 /min [facility] ( [facility], [facility]) Oxygen saturation in Arterial blood by Pulse oximetry 98 % 98 % [facility] ([facility]) Body temperature 96.6 [degF] 96.6 [degF] [facility] ([facility], [facility]) Body weight 195.00 [lb_av] 195.00 [lb_av] [facility] ([facility]) Body height 67 [in_i] 67 [in_i] [facility] ([facility]) 5'7" Body mass index (BMI) [Ratio] 30.5 kg/m2 30.5 k g/m2 [facility] ([facility]) Heart rate 65 /min 65 /min [facility] ([facility]) Respiratory rate 20 /min 20 /min [facility] ( [facility]) Oxygen saturation in Arterial blood by Pulse oximetry 97 % 97 % [facility] ([facility]) Body weight 202.38 [lb_av] 202.38 [lb_av] [facility] ([facility]) Body weight 91.797 kg 91.797 kg [facility] ([facility]) Oxygen saturation in Arterial blood by Pulse oximetry 90 % 90 % [facility] (Sulema Segura MD) Body height 68 [in_i] 68 [in_i] [facility] (Sulema Segura MD) 5'8" Systolic blood pressure 151 mm[Hg] 151 mm[Hg] [facility] (Sulema Segura MD) Diastolic blood pressure 86 mm[Hg] 86 mm[Hg] [facility] (Sulema Segura MD) Heart rate 77 /min 77 /min [facility] (Sulema Segura MD) Body temperature 97.2 [degF] 97.2 [degF] [facility] (Sulema Segura MD) Body weight 194.00 [lb_av] 194.00 [lb_av] [facility] (Sulema Segura MD) Body mass index (BMI) [Ratio] 29.5 kg/m2 29.5 k g/m2 [facility] (Sulema Segura MD)
[2021-08-14 11:21] VITALS: BP 154/87
--- OUTSIDE RECORDS SUMMARY | 2021-08-14 14:01 | CCD ---
Author Author [facility] Organization [facility] Address Unknown Phone Unavailable Care Team Providers Care Business Instructor Name Role Phone PIETRO, George ANAYA [...] Unavailable OBEN, T SINDY MD Unavailable Unavailable RUFUS, MAQBOOL SULEMA MD [...] is protected by Article 27-F of the [facility] Public Health law. If you continue you may have access to information: Regarding HIV / AIDS; Provided by facilities licensed or operated by the [facility] Office of Mental Health; or Provided by the [facility] Office for People With Developmental Disabilities. If such information is present, then the following [facility] mandated warning applies: This information has been [...] law may result in a fine or halfway sentence or both. A general authorization for the release of medical or other information is NOT sufficient authorization for further disc losure. Allergies and Adverse Reactions Type Description Substance Reaction Status Data Source(s ) No Known Drug Allergies No Known Drug Allergies [facility] Family History Family Member Name Family Member Gender Family Member Status Date o f Status Description Data Source(s) Unknown Male Problem [facility] ([facility]) () Unknown Male Problem [facility] ([facility]) Unknown Unknown Problem [facility] ([facility]) Unknown Unknown Problem [facility] ([facility]) Encounters Encounter Providers Location Date Indications Data Source(s ) Outpatient Attender: SULEMA SEGURA MDConsultant: SULEMA Cardoso MD 06/10/2021 11:45:00 AM EDT - 06/10/2021 12:45:00 PM EDT [facility] Outpatient Attender: Jannie Alexis MS, RPA-CConsultan t: SULEMA SEGURA MD 06/10/2021 11:43:00 AM EDT - 06/10/2021 12:43:00 PM EDT [facility] Outpatient Attender: SULEMA SEGURA MD Medical Building 06/10 11:30:00 AM EDT [facility] (Sulema Segura MD) Outpatient Attender: CHUCK martinez 06/05/2021 02:15:00 PM EDT [facility] ([facility] Outpatient Attender: SINDY EVANS MDConsultant: SULEMA SEGURA MD 05/13/2021 09:04:00 AM EDT - 05/13/2021 09:04:00 AM EDT [facility] Outpatient Attender: SULEMA SEGURA MD Medical Building 11/03 09:00:00 AM EST [facility] (Sulema Segura MD) Outpatient Attender: SULEMA SEGURA MD Medical Building 07/31 02:45:00 PM EDT [facility] (Sulema Segura MD) Immunizations Vaccine Date Status Description Data Source(s) COVID-19 VACCINE Pfizer 01/16/2021 12:00:00 AM EDT completed [facility] Vaccine Series Complete: YESThis Data wa s Submitted to [facility] [employer]. COVID-19 VACCINE Pfizer 12/26/2020 12:00:00 AM EST completed [facility] Vaccine Series Complete: NOThis Data was Submitted to [facility] [employer]. Medications Medication Brand Name Start Date Product Form Dose Route Admi nistrative Instructions Pharmacy Instructions Status Indications Reaction Description Data Source(s) 20 mg 06/05/2021 12:00:00 AM EDT tablet 10 TAKE ONE TABLET BY MOUTH TWICE A DAY FOR 5 DAYS TAKE ONE TABLET BY MOUTH TWICE A DAY FOR 5 DAYS SOLD: 2020 [facility] [employer] [facility] Prednisone 20 MG Oral Tablet Prednisone 06/05/2021 12:00:00 AM EDT active [facility] ([facility]) 2 % 07/31/2020 12:00:00 AM EDT [...] CAPSULES BY MOUTH EVERY DAY SOLD: 08/30/2020 [employer] [facility] Insurance Providers Payer name Policy type / Coverage type Policy ID Covered constitution party ID Covered constitution party's relationship to pineda Policy Pineda Plan Information [employer] [id number] [facility] [id number] [employer] Self () Workers Compensation [id number] Self J [id number] [employer] Self () Workers Compensation [id number] Self J [id number] [employer] Self () Workers Compensation [id number] Self J [id number] [facility] Self (WC) Workers Compensation [id number] Self J [id number] [facility] Self (WC) Workers Compensation [id number] Self J [id number] [facility] Self (WC) Workers Compensation [id number] Self J [id number] [facility] Self () Workers Compensation [id number] Self J [id number] [employer] (WC) Workers Compensation [id number] Self W [id number] [employer] (WC) Workers Compensation [id number] [id number] Self W [id number] [employer] Workers Compensation [id number] Self [id number] [employer] (WC) Workers Compensation [id number] Self W [id number] [employer] (WC) Workers Compensation [id number] Self W [id number] [employer] (WC) Workers Compensation [id number] [id number] Self W [id number] [employer] (WC) Workers Compensation [id number] Self W [id number] [employer] (WC) Workers Compensation [id number] [id number] Self W [id number] [employer] (WC) Workers Compensation [id number] [id number] Self W [id number] [employer] (WC) Workers Compensation [id number] Self W [id number] [employer] (HMO) [id number] Se lf [facility] SELF INSURED CLM#[id number] SP CLM#[id number] [employer] [id number] Self [employer] [id number] 18 [id number] [facility] SELF INS P [id number] S [id number] [employer] PPO P [id number] S [id number] [facility] SELF INSURED [id number] SP [id number] OTHER WORKERS COMPENSATION [id number] SP [id number] UMR [facility] [id number] SP [id number] UMR -O/P [id number] 18 [id number] UMR [place] [id number] 18 [id number] [employer] [id number] Self [id number] [employer] (pr) Medigap Part B [id number] [id number] 6226.0 Self [id number] [employer] (pr) Commercial [id number] [id number] Self [id number] [employer] [id number] [id number] S elf [id number] [employer] (pr) Medigap Part B [id number] [id number] 6226.0 Self [id number] [employer] (pr) Medigap Part B [id number] 2.16.8[id number] 6226.0 Self [id number] r Commercial [id number] [id number] S elf [id number] [employer] (pr) Medigap Part B [id number] [id number] 6226.0 Self [id number] [employer] O [id number] S [id number] [employer] (pr) Medigap Part B [id number] [id number] 6226.0 Self [id number] [employer] (pr) Medigap Part B [id number] [id number] 6226.0 Self [id number] [employer] (pr) Medigap Part B [id number] [id number] 6226.0 Self [id number] [facility] SELF INSURED [id number] [employer]/P [id number] 18 [id number] [employer] [id number] Self [id number] [employer] [place] [id number] 18 [id number] Problems, Conditions, and Diagnoses Code Display Name Description Problem Type Effective Dates Data Source(s) N390 Urinary tract infection, site not specif ied Urinary tract infection, site not specified Diagnosis 06/10/2021 11:45:00 AM EDT [facility] D649 Anemia, unspecified Anemia, unspecified Diagnosis 0 06/10/2021 11:45:00 AM EDT [facility] E785 Hyperlipidemia, unspecified Hyperlipidemia, unspecifie d Diagnosis 06/10/2021 11:45:00 AM EDT [facility] E119 Type 2 diabetes mellitus without complic ations Type 2 diabetes mellitus without complications Diagnosis 06/10/2021 11:45:00 AM EDT [facility] Z125 Encounter for screening for malignant ne oplasm of prostate Encounter for screening for malignant neoplasm of prostate Diagnosis 11:43:00 AM EDT [facility] Surgeries/Procedures Procedure Description Date Indications Data Source(s) OFFICE OUTPATIENT VISIT 25 MINUTES 06/10/2021 12:00:00 AM EDT [facility]JASEN (Sulema Segura MD) OFFICE OUTPATIENT VISIT 15 MINUTES 06/05/2021 12:00:00 AM EDT [facility] ([facility]) Results ID Date Data Source [id number] 07/05/2021 12:00:00 AM EDT [facility] Name Value Range Interpretation Code Description Data Génesis rce(s) Supporting Document(s) SARS-CoV2 Rapid Antigen Negative [facility] This lab was reported by [facility]. ID Date Data Source [id number] 06/10/2021 11:52:00 AM EDT [facility] (Sulema Segura MD) Name Value Range Interpretation Code Description Data Génessi rce(s) Supporting Document(s) Laboratory test finding (navigational [...] (navigational concept) Laboratory test result [facility] (Sulema Seugra MD) Laboratory test finding (navigational concept) Laboratory test result [facility] (Sulema Segura MD) ID Date Data Source [id number] 06/10/2021 11:52:00 AM EDT [facility] (Sulema Segura [...] AVERAGE 11.04 6.14 ID Date Data Source [id number] 06/10/2021 11:52:00 AM EDT [facility] (Sulema Segura [...] >32 mL/min Normal ID Date Data Source [id number] 06/10/2021 11:52:00 AM EDT MEDJASEN (Sulema Segura MD) Name Value Range Interpretation Code Description Data Génesis rce(s) Supporting Document(s) Hemoglobin A1c/Hemoglobin.total in Blood 6.1 % 4.4-6.1 [facility] (Sulema Segura MD) {A1] {HB] ID Date Data Source [id number] 06/10/2021 11:52:00 AM EDT [facility] (Sulema Segura [...] (Sulema Segura MD) ID Date Data Source [id number] 06/10/2021 01:13:00 PM EDT [facility] Name Value Range Interpretation Code Description Data Génesis rce(s) Supporting Document(s) UR[facility]ALYSIS [facility] URINALYSIS SOURCE R [facility] COLOR yellow NORMAL: Yellow [facility] CLARITY clear NORMAL: Clear [facility] Specific gravity of Urine by Test strip 1.025 1.001 - 1.030 [facility] pH 6 5 - 9 [facility] Glucose [Mass/volume] in Urine by Test strip NORM NORMAL: Negat [facility] Bilirubin.total [Presence] in Urine by Test strip NEG NORMAL: Negative [facility] Ketones [Presence] in Urine by Test strip NEG NORMAL: Negative [facility] Protein [Mass/volume] in Urine by Test strip NEG NORMAL: Negat [facility] Nitrite [Presence] in Urine by Test strip NEG NORMAL: Negative [facility] BLOOD NEG NORMAL: Negative [facility] LEUK EST 25 NORMAL: Negative [facility] Urobilinogen [Mass/volume] in Urine by Test strip 4 less vicente n 1.0 mg/dL [facility] MICROSCOPIC See Below [facility] ital WBC 1 - 3 NORMAL: NONE SEEN [facility] EPITHELIAL FEW NORMAL: NONE SEEN [facility] Bacteria [Presence] in Urine sediment by Light microscopy Tr michelle NORMAL: NONE SEEN [facility] ID Date Data Source [id number] 06/10/2021 12:57:00 PM EDT [facility] Name Value Range Interpretation Code Description Data Génesis rce(s) Supporting Document(s) CVE PANEL [facility] LIPID PANEL Cholesterol [Mass/volume] in Serum or Plasma 119 MG/DL 131 - 200 L [facility] Deprecated Triglyceride [Mass/volume] in Serum or Plasma 149 MG/DL 3 5 - 160 [facility] HDL 49 MG/DL 29 - 86 [facility] Cholesterol in LDL [Mass/volume] in Serum or Plasma by Direc t assay 58 mg/dL 65 - 175 L [facility] Cholesterol.total/Cholesterol in HDL [Mass Ratio] in Serum o r Plasma 2.4 3.4 - 4.9 L [facility] LDL/HDL 1.18 1.00 - 3.55 [facility] ital CVE RISK CHOL/HDL LDL/HDLMEN: 1/2 AVERAGE 3.43 1.00 AVERAGE 4.97 3.55 2X AVERAGE 9.55 6.25 3X AVERAGE 23.99 7.99WOMEN: 1/2 AVERAGE 3.27 1.47 AVERAGE 4.44 3.22 2X AVERAGE 7.05 5.03 3X AVERAGE 11.04 6.14 ID Date Data Source [id number] 06/10/2021 12:57:00 PM EDT [facility] Name Value Range Interpretation Code Description Data Génesis rce(s) Supporting Document(s) COMPREHENSIVE METABOLIC PANEL [facility] COMPREHENSIVE METABOLIC PANEL Sodium [Moles/volume] in Serum or Plasma 145 mEq/L 134 - 153 [facility] Potassium [Moles/volume] in Serum or Plasma 4.0 mEq/L 3.6 - 5.0 [facility] Chloride [Moles/volume] in Serum or Plasma 106 mEq/L 98 - 107 [facility] Carbon dioxide, total [Moles/volume] in Serum or Plasma 31 MEQ/L 22 - 30 H [facility] Glucose [Mass/volume] in Serum or Plasma 120 MG/DL 70 - 99 H [facility] BUN 21 MG/DL 7 - 21 [facility] Creatinine [Mass/volume] in Serum or Plasma 1.2 MG/DL 0.7 - 1.5 [facility] BUN/CREAT 18 8 - 27 [facility] Protein [Mass/volume] in Serum or Plasma 7.0 G/DL 6.3 - 8.2 [facility] Albumin [Mass/volume] in Serum or Plasma 4.6 G/DL 3.9 - 5.0 [facility] Globulin [Mass/volume] in Serum by calculation 2.4 GM/DL 2.4 - 3.2 [facility] A/G RATIO 1.9 0.8 - 2.0 [facility] Calcium [Mass/volume] in Serum or Plasma 10.2 MG/DL 8.4 - 10.2 [facility] Bilirubin.total [Mass/volume] in Serum or Plasma <0.7 MG/DL 0.2 - 1.3 [facility] Alkaline phosphatase [Enzymatic activity/volume] in Serum or Plasma 50 U/L 38 - 126 [facility] Aspartate aminotransferase [Enzymatic activity/volume] in Serum or Plasma 16 U/L 5 - 40 [facility] Alanine aminotransferase [Enzymatic activity/volume] in Seru m or Plasma 16 U/L 7 - 56 [facility] Anion gap 3 in Serum or Plasma 8.0 mmol/L 8.0 - 16.0 [facility] AGE 60 yrs [facility] NON-AA GFR >60 mL/min [facility] AFR AMER GFR >60 mL/min [facility] Male GFR In terprentation 20-49 [...] >32 mL/min Normal ID Date Data Source [id number] 06/10/2021 12:43:00 PM EDT [facility] Name Value Range Interpretation Code Description Data Génesis rce(s) Supporting Document(s) Hemoglobin A1c/Hemoglobin.total in Blood 6.1 % 4.4 - 6.1 [facility] {A1]{HB] ID Date Data Source [id number] 06/10/2021 12:04:00 PM EDT [facility] Name Value Range Interpretation Code Description Data Génesis rce(s) Supporting Document(s) CBC W/AUTOMATED DIFF [facility] COMPLETE BLOOD COUNT Leukocytes [#/volume] in Blood by Automated count 12.4 10^3/uL 4.2 - 11.0 H [facility] Erythrocytes [#/volume] in Blood by Automated count 4.86 10^6/uL 4. 50 - 6.30 [facility] Hemoglobin [Mass/volume] in Blood 15.1 g/dL 14.0 - 16.0 [facility] Hematocrit [Volume Fraction] of Blood by Automated count 44.7 % 4 1.0 - 51.0 [facility] Erythrocyte mean corpuscular volume [Entitic volume] by Auto mated count 92.0 fL 80.0 - 94.0 [facility] Erythrocyte mean corpuscular hemoglobin [Entitic mass] by Automated count 31.1 pg 27.0 - 34.0 [facility] Erythrocyte mean corpuscular hemoglobin concentration [Mass/volume] by Automated count 33.8 g/dL 31.0 - 36.0 [facility] Erythrocyte distribution width [Ratio] by Automated count 12.4 % 11.5 - 14.8 [facility] Platelets [#/volume] in Blood by Automated count 305 10^3/uL 150 - 45 0 [facility] Platelet mean volume [Entitic volume] in Blood by Automated count 9.4 fL 7.4 - 10.4 [facility] Neutrophils/100 leukocytes in Blood by Automated count 50.1 % 37. 0 - 80.0 [facility] Lymphocytes/100 leukocytes in Blood by Manual count 39.7 % 25.0 - 40.0 [facility] Monocytes/100 leukocytes in Blood by Automated count 7.4 % 3.0 - 8.0 [facility] Eosinophils/100 leukocytes in Blood by Automated count 1.3 % 0.0 - 7.0 [facility] Basophils/100 leukocytes in Blood by Automated count 0.4 % 0.0 - 2.0 [facility] %IG 1.1 % 0.0 - 0.0 H [facility] %NRBC 0.0 % 0.0 - 0.0 [facility] Neutrophils [#/volume] in Blood by Automated count 6.19 10^3/uL 2.00 - 6.90 [facility] Lymphocytes [#/volume] in Blood by Automated count 4.91 10^3/uL 0.60 - 3.40 H [facility] Monocytes [#/volume] in Blood by Automated count 0.91 10^3/uL 0.00 - 0.90 H [facility] Eosinophils [#/volume] in Blood by Automated count 0.16 10^3/uL 0.00 - 0.70 [facility] Basophils [#/volume] in Blood by Automated count 0.05 10^3/uL 0.00 - 0.20 [facility] #IG 0.14 10^3/uL 0.00 - 0.10 H [facility] #NRBC 0.00 10^3/uL 0.00 - 0.00 [facility] MANUAL DIFF NOT INDICATED [facility] RBC MORPH NOT INDICATED [facility] spital ID Date Data Source [id number] 06/10/2021 11:51:00 AM EDT [facility] (Sulema Segura MD) Name Value Range Interpretation Code Description Data Génesis rce(s) Supporting Document(s) Prostate specific Ag [Mass/volume] in [...] be used interchangeably. ID Date Data Source [id number] 06/10/2021 12:58:00 PM EDT [facility] Name Value Range Interpretation Code Description Data Génesis rce(s) Supporting Document(s) Prostate specific Ag [Mass/volume] in Serum or Plasma 2.13 ng/mL 0.00 - 4.00 [facility] \\BLDo\\PSA INTERPRETA TION\\BLDx\\ The PSA assay should [...] be used interchangeably. ID Date Data Source [id number] 05/13/2021 11:08:00 AM EDT [facility] ([facility]) Name Value Range Interpretation Code Description Data Génesis rce(s) Supporting Document(s) Color of Urine Laboratory test result [facility] ([facility]) Appearance of Urine Laboratory test result [facility] ([facility]) Spec [place] 1.030 1.001-1.030 [facility] ([facility]) pH of Urine by Test strip 5 5-9 MEDE NT ([facility]) Leukocytes Laboratory test result [facility] ([facility]) Nitrate [Presence] in Urine Laboratory test result [facility] ([facility]) Protein [Presence] in Urine by Test strip [facility] Ketones [Presence] in Urine by Test strip Laboratory test result [facility] ([facility]) Inhouse Glucose Laboratory test result Above high normal [facility] ([facility]) Bilirubin.total [Presence] in Urine by Test strip Laboratory test res ult [facility]) Urobilinogen Laboratory test result [facility] ([facility]) Blood type and Indirect antibody screen panel - Blood Laboratory test result [facility] ([facility]) Procedure Social History No Information Vital Signs ID Date Data Source UNK Name Value Range Interpretation Code Description Data Source(s) Body height 68 [in_i] 68 [in_i] [facility] 5'8" Body weight 199.38 [lb_av] 199.38 [lb_av] [facility] T (Sulema Segura MD) Body mass index (BMI) [Ratio] 30.3 kg/m2 30.3 k g/m2 [facility] (Sule[facility]) Body temperature 97.7 [degF] 97.7 [degF] [facility] (Sule[facility] Segura [facility]) Systolic blood pressure 122 mm[Hg] 122 mm[Hg] [facility] (Sulema Segura MD) Diastolic blood pressure 70 mm[Hg] 70 mm[Hg] [facility] (S[facility]) Heart rate 80 /min 80 /min [facility] (Sulema Segura MD) Oxygen saturation in Arterial blood by Pulse oximetry 98 % 98 % [facility] (Sulema Segura MD) Systolic blood pressure 119 mm[Hg] 119 mm[Hg] [facility]) Diastolic blood pressure 80 mm[Hg] 80 mm[Hg] [facility] ([facility]) Heart rate 73 /min 73 /min [facility] ([facility]) Respiratory rate 16 /min 16 /min [facility] ( [facility], [facility]) Oxygen saturation in Arterial blood by Pulse oximetry 98 % 98 % [facility] ([facility], [facility]) Body temperature 96.6 [degF] 96.6 [degF] [facility] ([facility], [facility]) Body weight 195.00 [lb_av] 195.00 [lb_av] MEDEN T ([facility], [facility]) Body height 67 [in_i] 67 [in_i] [facility] ([facility]) 5'7" Body mass index (BMI) [Ratio] 30.5 kg/m2 30.5 k g/m2 [facility] ([facility]) Heart rate 65 /min 65 /min [facility] ([facility]) Respiratory rate 20 /min 20 /min [facility] ( [facility]) Oxygen saturation in Arterial blood by Pulse oximetry 97 % 97 % [facility] ([facility]) Body weight 202.38 [lb_av] 202.38 [lb_av] MEDEN T ([facility]) Body weight 91.797 kg 91.797 kg [facility] ([facility]) Body height 68 [in_i] 68 [in_i] [facility] (Sulema Segura MD) 5'8" Oxygen saturation in Arterial blood by Pulse oximetry 90 % 90 % [facility] (Sulema Segura MD) Systolic blood pressure 151 mm[Hg] 151 mm[Hg] [facility] (Sulema Segura MD) Diastolic blood pressure [...]
[2021-08-14] MEDS: GI COCKTAIL 50ML BTL(HYOSCYAMINE/MAALOX/LIDOCAINE VISCOUS)(1:3:1) PO ONE (15:24)
[2021-08-14] MEDS: PANTOPRAZOLE 40MG VIAL (C9113 PER 1) IV ONE (15:24)
[2021-08-14] MEDS: SUCRALFATE 1 GM TAB PO ONE (15:24)
[2021-08-14] MEDS: NS 1,000 ML IV ONE (15:25)
[2021-08-14 15:32] LABS: BASO # 0.1 10^3/uL (0.0-0.2); BASO % 0.5 % (0.0-1.0); EOS # 0.2 10^3/uL (0.0-0.5); EOS % 1.8 % (0.0-3.0); HEMATOCRIT 43.5 % (42.0-52.0); HEMOGLOBIN 14.8 g/dl (13.5-17.5); LYMPH # 2.9 10^3/uL (1.5-5.0); LYMPH % 23.3 % (24.0-44.0); MEAN CORPUSCULAR HEMOGLOBIN 30.9 pg (27.0-33.0); MEAN CORPUSCULAR VOLUME 90.8 fl (80.0-96.0); MONO # 0.8 10^3/uL (0.0-0.8); MONO % 6.1 % (2.0-8.0); NEUTROPHILS # 8.5 10^3/uL (1.5-8.5); NEUTROPHILS % 67.9 % (36.0-66.0); PLATELET COUNT, AUTOMATED 273 10^3/uL (150-450); RED BLOOD COUNT 4.79 10^6/uL (4.30-6.10); WHITE BLOOD COUNT 12.5 10^3/uL (4.0-10.0)
[2021-08-14] MEDS ORDERED: ISOVUE-370 76% 100ML VIAL As Ordered ONE (15:34)
[2021-08-14 16:06] LABS: ALBUMIN 4.2 GM/DL (3.2-5.2); BILIRUBIN,DIRECT 0.2 MG/DL (0.0-0.2); BILIRUBIN,TOTAL 0.7 MG/DL (0.2-1.0); TOTAL PROTEIN 7.7 GM/DL (6.4-8.2)
--- NOTE | 2021-08-14 16:08 | REP ---
INDICATION: upper abd pain x 3 days. COMPARISON: None. TECHNIQUE: Standard helical technique after the intravenous administration of 100 cc Isovue 370 FINDINGS: The lung bases are clear. The liver, gallbladder, spleen, pancreas, adrenal glands, and kidneys are within normal limits. The abdominal aorta and para-aortic regions are within normal limits. There is diffuse mural thickening of the ascending colon, the proximal transverse colon, there is no evidence of a mass or adenopathy. Bone window technique throughout the examination shows the osseous structures to be within normal limits. And portions of the descending colon. This seen in conjunction with mild diffuse pericolonic fatty infiltration. There is no evidence of free fluid or free air. IMPRESSION: Khan or near pancolitis. <Electronically signed by Santiago Maynard > 08/14/21 [id number]
[2021-08-14] MEDS ORDERED: DICY10CA13 PO (16:44)
[2021-08-14] MEDS ORDERED: ONDA4TAB6 PO (16:44)
[2021-08-14] MEDS: DICYCLOMINE 10 MG CAP PO ONE (17:00)
== END 2021-08-14 23:40 | disposition home or self-care (01) ==
LOC: M ED 11:11
DX: K51.00 Ulcerative (chronic) pancolitis without complications (principal); R10.9 Unspecified abdominal pain; I10 Essential (primary) hypertension; Z79.899 Other long term (current) drug therapy; Z79.82 Long term (current) use of aspirin
CPT/HCPCS: 74177; 80047; 80076; 83690; 85025; 99283; C9113; Q9967

== ENCOUNTER → 2021-08-16 | Outpatient (REF) | payer OTHER ==
[~2021-08-16] MED LIST changes: +DICY10CA13 PO; +ONDA4TAB6 PO
== END ==
LOC: M LAB REF 09:00
PROVIDERS: ATTEND Emergency Medicine
DX: R19.7 Diarrhea, unspecified (principal)